=== PATIENT | female | born 1985 | race Caucasian/White ===

== ENCOUNTER → 2020-09-10 12:35 | Outpatient (BNVA) | payer OTHER, SELFPAY | PROVIDERS: PCP Internal Medicine; Visit Provider Nurse Practitioner | DX: Z13.89 Encounter for screening for other disorder (principal) | CPT/HCPCS: Q3014 ==

== ENCOUNTER 2020-10-28 13:49 | Outpatient (REF) | payer OTHER, SELFPAY ==
--- NOTE | ~2020-10-28 | US_ITS ---
EXAMINATION: US ABDOMEN LIMITED CLINICAL INFORMATION: AUGUSTINE. COMPARISON: Ultrasound abdomen 11/14/2019. Ultrasound renals 07/11/2017. TECHNIQUE: Real-time imaging of the right upper quadrant abdominal viscera. FINDINGS: PANCREAS: The pancreas is obscured by overlying gas. LIVER: The liver is normal in size. The liver contour is normal. Parenchymal echogenicity is increased. No focal hepatic lesion. There is no intrahepatic biliary duct dilatation seen. GALLBLADDER: Surgically absent. COMMON BILE DUCT: Normal in caliber measuring 0.3 cm in diameter. RIGHT KIDNEY: Normal. No hydronephrosis. No renal calculi or focal parenchymal lesions. The kidney measures 8.6 cm in maximum dimension. FREE FLUID: None. US/US abdomen limited IMPRESSION: Diffuse hepatic echogenicity suggestive of fatty liver. No focal lesion seen. The gallbladder is surgically absent. The CBD and the right kidney are unremarkable. The pancreas is obscured by gas.
== END 2020-10-28 13:50 | disposition home or self-care (01) ==
LOC: HO.US 13:49
PROVIDERS: PCP Internal Medicine; Visit Provider Nurse Practitioner
DX: K75.81 Nonalcoholic steatohepatitis (NASH) (principal)
CPT/HCPCS: 76705

== ENCOUNTER → 2020-12-08 15:21 | Outpatient (BNVA) | payer OTHER, SELFPAY | PROVIDERS: PCP Internal Medicine; Visit Provider Nurse Practitioner | DX: K21.9 Gastro-esophageal reflux disease without esophagitis (principal); K75.81 Nonalcoholic steatohepatitis (NASH); K58.2 Mixed irritable bowel syndrome; K59.04 Chronic idiopathic constipation; E66.01 Morbid (severe) obesity due to excess calories | CPT/HCPCS: Q3014 ==

== ENCOUNTER 2020-12-22 15:14 | Outpatient (REF) | payer OTHER, SELFPAY ==
[2020-12-22 18:16] LABS: Alanine Aminotransferase 23 U/L (0-31); Alkaline Phosphatase 63 U/L (39-117); Anion Gap 14 (12-20); Aspartate Amino Transferase 19 U/L (5-31); Bilirubin Total 0.9 mg/dL (0.0-1.0); Blood Urea Nitrogen 13 mg/dL (9-16); Calcium 9.7 mg/dL (8.4-10.2); Carbon Dioxide 25 mmol/L (22-29); Chloride 105 mmol/L (96-108); Estimated Glomerular Filt Rate > 60; Glucose Random 86 mg/dL (60-115); Sodium 139 mmol/L (135-145); Total Protein 6.7 g/dL (6.5-8.0)
[2020-12-24 12:52] LABS: Alpha Fetoprotein 3.5 ng/mL
== END 2020-12-22 15:15 | disposition home or self-care (01) ==
LOC: HO.HMGCLDS 15:14
PROVIDERS: PCP Internal Medicine; Visit Provider Nurse Practitioner
DX: K75.81 Nonalcoholic steatohepatitis (NASH) (principal)
CPT/HCPCS: 36415; 80053; 82105

== ENCOUNTER 2021-01-25 15:06 | Outpatient (REF) | payer OTHER, SELFPAY ==
[2021-01-25 17:04] LABS: Cholesterol 263 mg/dL; HDL Cholesterol 55 mg/dL; LDL Cholesterol Calculated 183 mg/dl; Triglycerides 128 mg/dL
[2021-01-25 17:28] LABS: TSH reflex Free T4 2.08 uIU/mL (0.32-4.0); Vitamin D 25-OH Total 28.3 ng/mL (>30)
[2021-01-25 17:40] LABS: Folate > 20.0 ng/mL (> or = 4.0); Vitamin B12 655 pg/mL (200-900)
== END 2021-01-25 15:07 | disposition home or self-care (01) ==
LOC: HO.HMGCLDS 15:06
PROVIDERS: PCP Internal Medicine; Visit Provider Internal Medicine
DX: Z00.00 Encounter for general adult medical examination without abnormal findings (principal); E66.01 Morbid (severe) obesity due to excess calories; K58.2 Mixed irritable bowel syndrome; R53.83 Other fatigue
CPT/HCPCS: 36415; 80061; 82306; 82607; 82746; 83735; 84443

== ENCOUNTER 2021-04-08 16:36 | Outpatient (REF) | payer OTHER, SELFPAY ==
[2021-04-08 17:26] LABS: Alanine Aminotransferase 27 U/L (0-31); Aspartate Amino Transferase 23 U/L (5-31); Cholesterol 244 mg/dL; HDL Cholesterol 45 mg/dL; LDL Cholesterol Calculated 168 mg/dl; Triglycerides 159 mg/dL
== END 2021-04-08 16:37 | disposition home or self-care (01) ==
LOC: HO.LAB 16:36
PROVIDERS: PCP Internal Medicine; Visit Provider Internal Medicine
DX: E66.01 Morbid (severe) obesity due to excess calories (principal); E78.5 Hyperlipidemia, unspecified
CPT/HCPCS: 36415; 80061; 84450; 84460

== ENCOUNTER 2021-05-11 11:23 | Outpatient (REF) | payer OTHER, SELFPAY ==
[2021-05-11 12:11] LABS: Influenza A PCR NEGATIVE (Negative); Influenza B PCR NEGATIVE (Negative); Resp Syncy Virus RNA Qual PCR POSITIVE (Negative); SARS COV2 PCR INHOUSE NEGATIVE (Negative)
== END 2021-05-11 11:24 | disposition home or self-care (01) ==
LOC: HO.LNP 11:23
PROVIDERS: Visit Provider Internal Medicine
DX: Z20.822 Contact with and (suspected) exposure to COVID-19 (principal); R43.9 Unspecified disturbances of smell and taste
CPT/HCPCS: 0241U

== ENCOUNTER 2021-05-26 15:14 | Outpatient (REF) | payer OTHER, SELFPAY | END 2021-05-26 15:15 | disposition home or self-care (01) | LOC: HO.LAB 15:14 | PROVIDERS: PCP Internal Medicine; Visit Provider Advanced Practice Midwife | DX: Z01.419 Encounter for gynecological examination (general) (routine) without abnormal findings (principal); E66.01 Morbid (severe) obesity due to excess calories; F17.210 Nicotine dependence, cigarettes, uncomplicated; Z68.43 Body mass index [BMI] 50.0-59.9, adult; Z79.899 Other long term (current) drug therapy | CPT/HCPCS: 88142; 99202 ==

== ENCOUNTER 2021-06-10 15:11 | Outpatient (REF) | payer OTHER, SELFPAY | END 2021-06-10 15:12 | disposition home or self-care (01) | LOC: HO.LAB 15:11 | PROVIDERS: Visit Provider Advanced Practice Midwife | DX: Z13.89 Encounter for screening for other disorder (principal) ==

== ENCOUNTER → 2021-07-16 16:24 | Outpatient (BNVA) | payer OTHER, SELFPAY | PROVIDERS: PCP Internal Medicine; Referring Provider Internal Medicine; Visit Provider Nurse Practitioner ==

== ENCOUNTER → 2021-08-16 16:06 | Outpatient (BNVA) | payer OTHER, SELFPAY | PROVIDERS: PCP Internal Medicine; Referring Provider Internal Medicine; Visit Provider Nurse Practitioner | DX: K21.9 Gastro-esophageal reflux disease without esophagitis (principal); K75.81 Nonalcoholic steatohepatitis (NASH); K59.04 Chronic idiopathic constipation; E66.01 Morbid (severe) obesity due to excess calories; Z68.43 Body mass index [BMI] 50.0-59.9, adult; Z79.899 Other long term (current) drug therapy | CPT/HCPCS: 99212 ==

== ENCOUNTER 2021-09-09 15:52 | Outpatient (REF) | payer OTHER, SELFPAY ==
--- NOTE | ~2021-09-09 | US_ITS ---
EXAMINATION: US ABDOMEN LIMITED CLINICAL INFORMATION: Nonalcoholic steatohepatitis. COMPARISON: Ultrasound abdomen limited 10/28/2020. Ultrasound abdomen complete 11/14/2019. MRI abdomen 05/03/2013. TECHNIQUE: Real-time imaging of the right upper quadrant abdominal viscera. Technically suboptimal study secondary to bowel gas and body habitus. FINDINGS: PANCREAS: Not visualized due to bowel gas. LIVER: Not well visualized. No focal liver lesion or biliary duct dilatation seen. GALLBLADDER: Surgically absent. COMMON BILE DUCT: Not well visualized. The visualized common bile duct is normal in caliber measuring 0.3 cm in diameter. RIGHT KIDNEY: Normal. No hydronephrosis. No renal calculi or focal parenchymal lesions. The kidney measures 8.1 cm in maximum dimension. FREE FLUID: None. US/US abdomen limited IMPRESSION: Very limited exam. The liver, pancreas and common bile duct are not well visualized.
[2021-09-09 17:32] LABS: Alanine Aminotransferase 39 U/L (0-31); Albumin Level 3.8 g/dL (3.5-5.0); Alkaline Phosphatase 58 U/L (39-117); Aspartate Amino Transferase 19 U/L (5-31); Bilirubin Direct 0.2 mg/dL (0.0-0.5); Bilirubin Total 0.6 mg/dL (0.0-1.0); Total Protein 6.5 g/dL (6.5-8.0)
[2021-09-13 11:21] LABS: Alpha Fetoprotein 3.2 ng/mL
== END 2021-09-09 15:53 | disposition home or self-care (01) ==
LOC: HO.US 15:52
PROVIDERS: Visit Provider Nurse Practitioner
DX: K75.81 Nonalcoholic steatohepatitis (NASH) (principal)
CPT/HCPCS: 36415; 76705; 80076; 82105

== ENCOUNTER 2022-03-29 14:33 | Outpatient (REF) | payer OTHER, SELFPAY ==
[2022-03-29 16:25] LABS: MANUAL DIFF FLAG NO
[2022-03-29 16:30] LABS: Basophils Percent Auto 0.5 % (0-2); Eosinophils Absolute Auto 0.2 X10*3/uL (0.0-0.4); Eosinophils Percent Auto 2.2 % (0-4); Hematocrit 44.8 % (37.0-47.0); Hemoglobin 14.5 g/dl (12.0-16.0); Imm Gran Abs Auto 0.05 X10*3/uL (0.00-0.03); Imm Gran Pct Auto 0.6 % (0.0-0.4); Lymphocytes Absolute Auto 3.3 X10*3/uL (1.2-4.9); Lymphocytes Percent Auto 38.4 % (20-40); Mean Corpuscular HGB Conc 32.4 g/dl (31.0-35.0); Mean Corpuscular Hemoglobin 30.8 pg (27.0-33.0); Mean Corpuscular Volume 95.1 fL (80.0-98.0); Mean Platelet Volume 8.9 fL (9.4-12.3); Monocytes Absolute Auto 0.6 X10*3/uL (0.1-1.2); Monocytes Percent Auto 6.4 % (2-11); Neutrophils Absolute Auto 4.5 x10*3/uL (2.0-8.3); Neutrophils Percent Auto 51.9 % (45-73); Platelet Count 317 X10*3/uL (160-400); Red Blood Count 4.71 X10*6/uL (4.20-5.50); Red Cell Distribution Width 13.1 % (11.0-16.0); White Blood Count 8.6 X10*3/uL (4.8-10.8)
[2022-03-29 16:49] LABS: Alanine Aminotransferase 29 U/L (0-31); Anion Gap 18 (12-20); Aspartate Amino Transferase 21 U/L (5-31); Blood Urea Nitrogen 11 mg/dL (9-16); Calcium 9.5 mg/dL (8.4-10.2); Carbon Dioxide 24 mmol/L (22-29); Chloride 104 mmol/L (96-108); Cholesterol 288 mg/dL; Estimated Glomerular Filt Rate > 60; Glucose Fasting 100 mg/dL (60-99); HDL Cholesterol 68 mg/dL; LDL Cholesterol Calculated 202 mg/dl; Potassium 4.7 mmol/L (3.3-5.1); Sodium 141 mmol/L (135-145); Triglycerides 94 mg/dL
[2022-03-29 17:12] LABS: TSH reflex Free T4 2.58 uIU/mL (0.32-4.0); Vitamin D 25-OH Total 39.6 ng/mL (>30)
[2022-03-29 17:32] LABS: Folate > 20.0 ng/mL (> or = 4.0); Vitamin B12 549 pg/mL (200-900)
== END 2022-03-29 14:34 | disposition home or self-care (01) ==
LOC: HO.HMGCLDS 14:33
PROVIDERS: PCP Internal Medicine; Visit Provider Internal Medicine
DX: Z00.01 Encounter for general adult medical examination with abnormal findings (principal); K75.81 Nonalcoholic steatohepatitis (NASH); K59.04 Chronic idiopathic constipation; K58.2 Mixed irritable bowel syndrome; K21.9 Gastro-esophageal reflux disease without esophagitis; E66.01 Morbid (severe) obesity due to excess calories; F31.9 Bipolar disorder, unspecified
CPT/HCPCS: 36415; 80048; 80061; 82306; 82607; 82746; 84443; 84450; 84460; 85025

== ENCOUNTER → 2022-05-18 16:07 | Outpatient (BNVA) | payer OTHER, SELFPAY | PROVIDERS: PCP Internal Medicine; Visit Provider Nurse Practitioner | DX: K75.81 Nonalcoholic steatohepatitis (NASH) (principal); K58.2 Mixed irritable bowel syndrome; E66.01 Morbid (severe) obesity due to excess calories; K21.9 Gastro-esophageal reflux disease without esophagitis; R53.83 Other fatigue; K59.04 Chronic idiopathic constipation | CPT/HCPCS: 99212 ==

== ENCOUNTER 2022-06-03 17:05 | Outpatient (REF) | payer OTHER, SELFPAY ==
[2022-06-03 18:24] LABS: Alanine Aminotransferase 20 U/L (0-31); Albumin Level 3.7 g/dL (3.5-5.0); Alkaline Phosphatase 64 U/L (39-117); Aspartate Amino Transferase 16 U/L (5-31); Bilirubin Direct 0.2 mg/dL (0.0-0.5); Bilirubin Total 0.3 mg/dL (0.0-1.0); Blood Urea Nitrogen 12 mg/dL (9-16); Estimated Glomerular Filt Rate 60; Free T4 (Free Thyroxine) 1.14 ng/dL (0.71-1.85); Total Protein 6.2 g/dL (6.5-8.0)
[2022-06-06 14:14] LABS: Alpha Fetoprotein 2.8 ng/mL
[2022-06-06 18:58] LABS: Thyroid Peroxidase Antibodies 4 IU/mL (<9)
== END 2022-06-03 17:06 | disposition home or self-care (01) ==
LOC: HO.LAB 17:05
PROVIDERS: PCP Internal Medicine; Visit Provider Nurse Practitioner
DX: E66.01 Morbid (severe) obesity due to excess calories (principal); K75.81 Nonalcoholic steatohepatitis (NASH); R53.83 Other fatigue
CPT/HCPCS: 36415; 80076; 82105; 82565; 84439; 84520; 86376

== ENCOUNTER 2022-06-07 15:44 | Outpatient (REF) | payer OTHER, SELFPAY ==
[2022-06-07] MEDS: iohexoL 350 MG/ML 100 ML INFUS..BTL IV (16:37)
== END 2022-06-07 15:45 | disposition home or self-care (01) ==
LOC: HO.CT 15:44
PROVIDERS: PCP Internal Medicine; Visit Provider Nurse Practitioner
DX: K75.81 Nonalcoholic steatohepatitis (NASH) (principal); E66.01 Morbid (severe) obesity due to excess calories
CPT/HCPCS: 74170; Q9967

== ENCOUNTER → 2022-09-30 16:12 | Outpatient (BNVA) | payer OTHER, SELFPAY | PROVIDERS: PCP Internal Medicine; Visit Provider Nurse Practitioner | DX: K58.2 Mixed irritable bowel syndrome (principal); K21.9 Gastro-esophageal reflux disease without esophagitis; K75.81 Nonalcoholic steatohepatitis (NASH) | CPT/HCPCS: 99212 ==

== ENCOUNTER 2023-03-30 13:51 | Outpatient (AMB) | payer OTHER, SELFPAY ==
[2023-03-30 13:55] VITALS: BP 126/70; PULSE 95; O2SAT 98; BMI 54.7
--- NOTE | 2023-03-30 13:55 | A.OFFPC_ITS ---
Vital Signs 03/30/23 13:55 Height 5 ft 2 in Weight 299 lb BMI 54.7 BP 126/70 Blood Pressure Location Rt brachial Position Sitting Pulse 95 Pulse Source Pulse Oximeter Pulse Oximetry (%) 98 Oxygen Delivery Method Room Air Intake Visit Reasons: annual PE Intake Note: pt is here today for her annual PE Allergies diphtheria,pertussis,tetanus, Haem. [DIP,PERT,TET, HAEM. CONJ VACC] Allergy (Severe, Verified 03/30/23 14:40) DIFFICULTY BREATHING strawberry Allergy (Unknown, Verified 03/30/23 14:40) Swelling, hives hydrocodone [Vicodin] Adverse Reaction (Unknown, Verified 03/30/23 14:40) vomiting Medication List - Last Reconciled 03/30/23 by Shanda Gonzalez MD ascorbic acid (vitamin C) mg PO bupropion HCl 300 mg PO DAILY unlpjfojcv-xhisgfsmdmvbq-hkav 50-300-40 mg 1 cap PO Q8H PRN calcium polycarbophil (Fiber Laxative (calcium polycarbophil)) 1,250 mg (2 x 625 mg) PO BID 30 days carboxymethylcellulose sodium 0.5% 0 drps ophthalmic (eye) carisoprodol 350 mg PO BID PRN cetirizine 10 mg PO DAILY PRN cholecalciferol (vitamin D3) 50 mcg PO DAILY cranberry 400 mg PO DAILY dicyclomine 20 mg PO QID PRN 30 days docusate sodium 100 mg PO BID famotidine 40 mg PO BEDTIME fluoxetine 0 mg PO hydroxyzine HCl 25 mg PO TID PRN lidocaine HCl 4% (Aspercreme (lidocaine HCl)) 1 appl topical BID PRN qrzvxe-xbffmbcz-xolbdlz 24,000-76,000 -120,000 unit (Creon) 1 cap PO QIDACHS 30 days lorazepam 1 mg PO DAILY PRN melatonin mg PO multivitamin 1 tab PO DAILY nabumetone 500 mg PO BID PRN nystatin 1 appl topical BID rizatriptan (Maxalt-CABIN AGENT) take 1 tab at onset of headache; if no relief may repeat 1 tab after at least 2 hrs; max = 3 tabs/24 hr PO tizanidine 4 mg PO BID PRN Tobacco use date assessed: 03/30/23 Dental Screening Dental Screen Date: 03/30/23 Did you have a dental visit in the last 12 months?: Yes Did you have a dental problem in the last 6 months where you did not have access to dental care?: No Was dental information given to patient?: Patient has dentist HPI annual PE HPI Details 37-year-old lady here today for her phys ical exam. She is morbidly obese, unable to do any meaningful exercise due to chronic low back pain. Declines referral for weight loss management. She has been diagnosed to have Scheuermann's kyphosis, was never corrected during childhood. Takes muscle relaxants and NSAIDs as needed for pain. She has been diagnosed with bipolar disorder, currently being followed by Psychiatry. She has chronic GERD, IBS, and diagnosed to have non alcoholic steatohepatitis currently takes famotidine. Complains of difficulty getting a good night's rest, frequently wakes up during the middle of the night, sometimes ends up coughing, has been told that she snores a lot and wakes up usually not feeling rested at all, and has excessive daytime sleepiness. Has migraine headaches, previously was on sumatriptan, which has not been working anymore. Like to see if she can get a prescription instead for rizatriptan which she has tried in the past to be effective. She is up-to-date with her cervical cancer screen, last done in 2020 with negative results [facility] Medical History (Updated 04/10/23 @ 02:10 by Shanda Gonzalez MD) Migraine Sleeping difficulty Seasonal allergic rhinitis Erythema intertrigo Dyslipidemia Chronic low back pain Cervical cancer screening Fatigue Morbid obesity due to excess calories Choledocholithiasis Bipolar disorder (manic depression) Scheuermann's kyphosis Surgical History History of ERCP Family History Father Acute myocardial infarction History of CVA (cerebrovascular accident) CVD (cardiovascular disease) Hyperlipidemia Substance abuse Mental health disorder Mother Substance abuse Mental health disorder Brother No problems noted. Brother Mental health disorder Sister Substance abuse Social History Housing: Apartment Alcohol intake: current Alcohol intake frequency: does not drink Patient Tobacco Use Status: Former Tobacco user Cigarette Packs Per Day: 1.5 Cigarettes Per Day: 30 Years Smoked: 15 e-Cigarette/Vaping Use: Never Used Second Hand Smoke Exposure: No service: No Current occupational status: disabled Current occupational exposures/hazards: No Cognitive needs: No Hearing needs: No Vision needs: Yes Female Reproductive History Menstrual Age of Menarche: 9 Questionnaire PHQ-9 Over the last 2 weeks, how often have you been bothered by any of the following problems? 1. Little interest or pleasure in doing things: several days 2. Feeling down, depressed, or hopeless: several days 3. Trouble falling or staying asleep, or sleeping too much: nearly every day 4. Feeling tired or having little energy: several days 5. Poor appetite or overeating: not at all 6. Feeling bad about yourself - or that you are a failure or have let yourself or your family down: several days 7. Trouble concentrating on things, such as reading the newspaper or watching television: not at all 8. Moving or speaking so slowly that other people could have noticed. Or the opposite - being so fidgety or restless that you have been moving around a lot more than usual: not at all 9. Thoughts that you would be better off or of hurting yourself in some way: not at all Total score: 7 Depression Screening Interpretation: Positive Depression Screening Follow-up: Existing condition, In treatment and Community Mental Health Worker F/U Depression Screening Done: Yes [id number] - PHQ-9 Billing: Yes Source: Developed by Drs. Boo Zavala, Lexus Saenz, Joseph Walters and colleagues, with an educational tramaine from [employer]. Thrive Questionnaire Date Thrive assessed: 03/30/23 What is your living situation today?: I have a steady place to live Within the past 12 months, did the food you bought not last and you didn't have the money to get more?: Never true Within the past 12 months, did you worry whether your food would run out before you got money to buy more?: Never true Do you have trouble paying for medicines?: No Do you have trouble getting transportation to medical appointments?: No Do you have trouble paying your heating and electricity bill?: No Do you have trouble taking care of your child, family member or friend?: No Do you have trouble with day-to-day activities such as bathing, preparing meals, shopping, managing finances, etc.?: No Are you currently unemployed and looking for a job?: No Are you interested in more education?: No Please select the resources that you would like help with: None Currently or been in a relationship where the following occur: no concerns reported AUDIT C Alcohol Use Questionnaire (AUDIT-C) 1. How often do you have a drink containing alcohol?: Never Total Score: 0 ELIE-7 AMB Questionnaire ELIE-7 Date ELIE - 7 assessed: 03/29/22 Source: Developed by Drs. Boo Zavala, Lexus Saenz, Joseph Walters and colleagues, with an educational tramaine from [employer]. Review of Systems Const All systems reviewed & are unremarkable except as noted in HPI and below Eyes Details: [facility] Reports no additional complaints ENT Reports no additional complaints Card Reports no additional complaints Resp Reports no additional complaints GI Reports no additional complaints Reports no additional complaints Musc Reports no additional complaints, Reports back pain and Reports stiffness Skin/Breast Denies breast pain and Denies breast mass Neuro Reports no additional complaints and Denies Abnormal speech present Psych Reports no additional complaints Endo Reports no additional complaints Kirk/Lymph Reports no additional complaints Aller/Immun Reports no additional complaints Physical exam (Primary Care) Vital Signs: Last Vital Signs Pulse 95 03/30/23 13:55 BP 126/70 03/30/23 13:55 Pulse Ox 98 03/30/23 13:55 Oxygen Delivery Method Room Air 03/30/23 13:55 BMI result Body Mass Index 54.7 BMI Assessment/Plan discussion: High BMI High, discussed plan: lifestyle, weight reduction, dietary and physical activity Tobacco/Smoking Status: Tobacco use Status Tobacco use date assessed 03/30/23 03/30/23 13:57 Patient Tobacco Use Status Former Tobacco user 03/30/23 13:57 e-Cigarette/Vaping Use Never Used 03/30/23 13:57 Are you ready to quit: No Depression Screening Interpretation: Positive Depression Screening Follow-up: Existing condition, In treatment and Community Mental Health Worker F/U Thrive Assessment: Date of Thrive Assessment Date Thrive assessed 03/29/22 03/30/23 13:57 Currently or been in a relationship where the following occur: no concerns reported Const General: no acute distress Nutritional Appearance: obese morbidly obese Orientation/consciousness: patient oriented x3 HENTN Ears: hearing grossly normal bilaterally and external ears normal General nose exam: Normal external nose present and No nasal discharge present Face and sinus: Yes face symmetric Mouth: moist mucous membranes Eyes General: appearance normal, both eyes and all related structures Neck Neck: Yes no lymphadenopathy and Yes supple Thyroid: Thyroid normal Chest Breast/axilla palpation: normal palpation of the breasts Resp Auscultation: clear to auscultation bilaterally Cardio Rate: regular rate Rhythm: regular rhythm Heart sounds: S1 normal heart sound present and S2 normal heart sound present GI Inspection: Yes Abdominal panniculus present and Yes obesity Palpation (GI): Soft to palpation, nontender, no guarding, no hernias and no masses Auscultation: normal bowel sounds General: Yes no CVA tenderness Back/Spine/Pelvis Other: Slightly kyphotic Back: no CVA tenderness and back tenderness Thoracic/Lumbar Spine: straight leg raise negative bilaterally, bend over test abnormal and paraspinal muscle tenderness bilaterally in the mid lumbar and in the lower lumbar Skin Other: Erythematous moist patch on inframammary fold bilateral Neuro General: patient oriented x3, gait normal, moves all extremities and no focal motor deficits Speech: No Abnormal speech present Extrem General: Yes full ROM, Yes no joint enlargement, Yes no pedal edema and Yes normal gait Psych Appearance: grossly normal Mental Status: mental status grossly normal Speech and movement: Normal speech and movement present Affect: normal affect Attitude: cooperative Thought process: Normal thought process present Assessment and Plan Assessment & Plan (1) Annual visit for general adult medical examination with abnormal findings: Code(s): Z00.01 - Encounter for general adult medical examination with abnormal findings Plan: Will check appropriate labs. Recommended dental visit every 6 months and regular eye exams, at least every 2 years. Take adequate calcium in diet and vitamin-D 3 at 2000 IU per cap once a day, in addition to weight-bearing exercises to help maintain good muscle tone and weight control. Instructed to do self-breast exam, and recommended to get yearly mammogram, starting at age 40. Up-to-date with her screening for cervical cancer. Reminded to get her flu shot (2) Sleeping difficulty: Code(s): G47.9 - Sleep disorder, unspecified Plan: Sleep medicine consult ordered (3) Snoring: Code(s): R06.83 - Snoring Plan: Sleep medicine consult ordered (4) Scheuermann's kyphosis: Code(s): 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, site unspecified Plan: Neuro Spine consult ordered (5) Dyslipidemia: Code(s): E78.5 - Hyperlipidemia, unspecified Plan: Fasting lipid panel ordered , stressed importance of adherence to low- cholesterol diet and regular exercise, at least 30 minutes 3 to 4 times a week. Advised patient to make healthy food choices, eat more fruits, vegetables, whole grains, wild caught fish and low-fat dairy. Limit amount of meat and fried or fatty food products, as well as processed foods and fast foods. (6) Morbid obesity due to excess calories: Code(s): E66.01 - Morbid (severe) obesity due to excess calories Plan: Patient has declined referral for weight loss management, stressed importance of following healthy diet and getting regular exercise. (7) AUGUSTINE (nonalcoholic steatohepatitis): Code(s): K75.81 - Nonalcoholic steatohepatitis (AUGUSTINE) (8) Bipolar disorder (manic depression): Code(s): F31.9 - Bipolar disorder, unspecified Plan: Currently being followed by Psychiatry (9) Fatigue: Code(s): R53.83 - Other fatigue Qualifiers: Fatigue type: chronic, unspecified Qualified Code(s): R53.82 - Chronic fatigue, unspecified Plan: Ordered vitamin-D and TSH level as was free T4, referred to sleep medicine for evaluation for possible obstructive sleep apnea (10) Migraine: Code(s): G43.909 - Migraine, unspecified, not intractable, without status migrainosus Qualifiers: Migraine type: migraine (< 15 days per month) without aura Status migrainosus presence: without status migrainosus Intractability: not intractable Qualified Code(s): G43.009 - Migraine without aura, not intrac table, without status migrainosus Plan: Prescription sent for rizatriptan to take as directed, discontinue sumatriptan Orders: Orders Lipid Panel 03/30/23 G43.909 - Migraine, unspecified, not intractable, without status migrainosus, E78.5 - Hyperlipidemia, unspecified, K75.81 - Nonalcoholic steatohepatitis (AUGUSTINE), E66.01 - Morbid (severe) obesity due to excess calories, F31.9 - Bipolar disorder, unspecified, 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, site unspecified, R53.83 - Other fatigue Vitamin D 25-OH Total 03/30/23 G43.909 - Migraine, unspecified, not intractable, without status migrainosus, E78.5 - Hyperlipidemia, unspecified, K75.81 - Nonalcoholic steatohepatitis (AUGUSTINE), E66.01 - Morbid (severe) obesity due to excess calories, F31.9 - Bipolar disorder, unspecified, 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, site unspecified, R53.83 - Other fatigue TSH reflex Free T4 03/30/23 G43.909 - Migraine, unspecified, not intractable, without status migrainosus, E78.5 - Hyperlipidemia, unspecified, K75.81 - Nonalcoholic steatohepatitis (AUGUSTINE), E66.01 - Morbid (severe) obesity due to excess calories, F31.9 - Bipolar disorder, unspecified, 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, site unspecified, R53.83 - Other fatigue Alanine Aminotransferase 03/30/23 G43.909 - Migraine, unspecified, not intractable, without status migrainosus, E78.5 - Hyperlipidemia, unspecified, K75.81 - Nonalcoholic steatohepatitis (AUGUSTINE), E66.01 - Morbid (severe) obesity due to excess calories, F31.9 - Bipolar disorder, unspecified, 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, site unspecified, R53.83 - Other fatigue Aspartate Amino Transferase 03/30/23 G43.909 - Migraine, unspecified, not intractable, without status migrainosus, E78.5 - Hyperlipidemia, unspecified, K75.81 - Nonalcoholic steatohepatitis (AUGUSTINE), E66.01 - Morbid (severe) obesity due to excess calories, F31.9 - Bipolar disorder, unspecified, 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, site unspecified, R53.83 - Other fatigue Basic Metabolic Panel Fasting 03/30/23 G43.909 - Migraine, unspecified, not intractable, without status migrainosus, E78.5 - Hyperlipidemia, unspecified, K75.81 - Nonalcoholic steatohepatitis (AUGUSTINE), E66.01 - Morbid (severe) obesity due to excess calories, F31.9 - Bipolar disorder, unspecified, 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, site unspecified, R53.83 - Other fatigue Referrals Sleep Medicine Referral R06.83 - Snoring, G47.9 - Sleep disorder, unspecified, E66.01 - Morbid (severe) obesity due to excess calories Neuro Spine Referral 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, site unspecified Medications: New rizatriptan (Maxalt-CABIN AGENT) take 1 tab at onset of headache; if no relief may repeat 1 tab after at least 2 hrs; max = 3 tabs/24 hr PO 10 tabs 2RF G43.909 - Migraine, unspecified, not intractable, without status migrainosus Discontinued sumatriptan succinate Discontinued Reason: Patient Refused 50 mg PO .qd PRN 10 tabs 0RF for headache Coding Level of Care Code Est Pt Prev Care [id number]([id number]) Diagnoses Annual visit for general adult medical examination with abnormal findings Z00.01 Sleeping difficulty G47.9 Snoring R06.83 Scheuermann's kyphosis M42.00 Dyslipidemia E78.5 Morbid obesity due to excess calories E66.01 AUGUSTINE (nonalcoholic steatohepatitis) K75.81 Bipolar disorder (manic depression) F31.9 Chronic fatigue R53.82 Fatigue type: chronic, unspecified Migraine without aura and without status migrainosus, not intractable G43.009 Migraine type: migraine (< 15 days per month) without aura Status migrainosus presence: without status migrainosus Intractability: not intractable
== END 2023-03-30 14:46 | disposition home or self-care (01) ==
PROVIDERS: Visit Provider Internal Medicine
DX: Z00.00 Encounter for general adult medical examination without abnormal findings (principal); E66.01 Morbid (severe) obesity due to excess calories; F31.9 Bipolar disorder, unspecified; Z68.43 Body mass index [BMI] 50.0-59.9, adult; G47.9 Sleep disorder, unspecified; R06.83 Snoring; M42.00 Juvenile osteochondrosis of spine, site unspecified; E78.5 Hyperlipidemia, unspecified; K75.81 Nonalcoholic steatohepatitis (NASH); R53.82 Chronic fatigue, unspecified; G43.009 Migraine without aura, not intractable, without status migrainosus
CPT/HCPCS: 99395

== ENCOUNTER 2023-04-28 13:48 | Outpatient (AMB) | payer OTHER, SELFPAY ==
--- NOTE | 2023-04-28 14:06 | A.OFFVIS_ITS ---
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 She reports she had a polysomnogram in 2010 that was inconclusive. She snores at night. She states she doesn't get much sleep but isn't sure if it's because of repositioning from her back issues or simply because she can't breath well. 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 [DIP,PERT,TET, HAEM. CONJ VACC] Allergy (Severe, Verified 04/28/23 14:06) DIFFICULTY BREATHING strawberry Allergy (Unknown, Verified 04/28/23 14:06) Swelling, hives hydrocodone [Vicodin] Adverse Reaction (Unknown, Verified 04/28/23 14:06) vomiting HPI HPI Comments History of Present Illness Details 38 y/o female patient presents for new i n-person visit for sleep consultation. Pt reports that she had a PSG sleep study done in 2010, but it was inconclusive. She could not sleep due to back pain. She gained about 60 lb since the sleep study. She reports snoring, also has sinus problem and her nose also very stuffy. She reports interrupted sleep, daytime sleepiness with brain fog. Sleep questionnaire: Have you ever been diagnosed with a sleep disorder? No. Have you ever had a sleep study in the past? Yes. Have you ever been treated for a sleep disorder? No. Do you take medications for a sleep disorder? PRN melatonin. Do you snore? Yes. Do you wake up gasping at night? No. Do you have episodes of apneas? No. If yes, are they witnessed? No. Do you have episodes of nocturnal chest pain or dyspnea? No. Do you have difficulty initiating sleep? Yes. Do you have difficulty maintaining sleep? Yes. Do you wake up tired? Yes. Do you have headaches upon awakening? Yes. Do you wake up with dry mouth or throat? No. Do you have GERD? Yes. Do you have nocturia? No. Do you have nocturnal leg cramps? Yes. Do you have symptoms of restless legs? No. Do you act out your dreams? No. Sleep hygiene questionnaire: What is your usual sleep routine? Usual bedtime is at 10 pm; Usual wake up time is at 6-8 am. Do you take naps? Try not to. Is your sleep environment cool, dark, and quiet? Yes. Do you exercise? Walking. Do you take caffeine or other stimulants? No. Do you use electronics in bed? No. What is your work schedule? N/A. Hypersomnolence questionnaire: Do you have daytime tiredness or fatigue? Yes. Do you easily fall asleep when inactive? Yes, sometimes. Have you ever had episodes of sudden weakness? No. Have you ever had episodes of sudden weakness associated with strong emotions? No. PFSH Medical History (Updated 04/28/23 @ 14:41 by Malka Rebolledo CNP) Migraine Sleeping difficulty Seasonal allergic rhinitis Erythema intertrigo Dyslipidemia Chronic low back pain Cervical cancer screening Fatigue Morbid obesity due to excess calories Choledocholithiasis Bipolar disorder (manic depression) Scheuermann's kyphosis Surgical History History of ERCP Family History Father Acute myocardial infarction History of CVA (cerebrovascular accident) CVD (cardiovascular disease) Hyperlipidemia Substance abuse Mental health disorder Mother Substance abuse Mental health disorder Brother No problems noted. Brother Mental health disorder Sister Substance abuse Social History Housing: Apartment Alcohol intake: current Alcohol intake frequency: does not drink Patient Tobacco Use Status: Former Tobacco user Cigarette Packs Per Day: 1.5 Cigarettes Per Day: 30 Years Smoked: 15 e-Cigarette/Vaping Use: Never Used Second Hand Smoke Exposure: No service: No Current occupational status: disabled Current occupational exposures/hazards: No Cognitive needs: No Hearing needs: No Vision needs: Yes Female Reproductive History Menstrual Age of Menarche: 9 Review of Systems Const All systems reviewed & are unremarkable except as noted in HPI and below ENT Reports Normal hearing present Neuro Reports Normal hearing present Physical Exam Vital Signs: Last Vital Signs Pulse 89 04/28/23 14:07 Resp 17 04/28/23 14:07 BP 110/66 04/28/23 14:07 Pulse Ox 99 04/28/23 14:07 Oxygen Delivery Method Room Air 04/28/23 14:07 BMI result Body Mass Index 56.6 Const General: cooperative and tired appearing Nutritional Appearance: obese Orientation/consciousness: patient oriented x3 Neck Neck: Yes full ROM and Yes supple Neuro General: patient oriented x3 and gait normal Cranial nerves: Yes Bilaterally intact EOM present, Yes Normal facial strength present, Yes Midline tongue present, Yes Symmetric palate elevation present, Yes Normal hearing present, Yes Ability to bilaterally rotate head present and Yes Ability to bilaterally elevate shoulders present Cognition (Neuro): normal cognition Gait exam (Neuro): Normal gait present Motor exam (neuro): 5/5 motor strength present throughout, Pronator motor function not present and no tremor noted Psych Appearance: grossly normal Mental Status: mental status grossly normal Speech and movement: Normal speech and movement present Affect: normal affect Attitude: cooperative Assessment & Plan Assessment & Plan (1) Daytime sleepiness: Code(s): R40.0 - Somnolence (2) Snoring: Code(s): R06.83 - Snoring (3) Sleeping difficulty: Code(s): G47.9 - Sleep disorder, unspecified Plan Pt is advised to undergo home sleep study to assess for sleep apnea. Pt prefers to have home sleep study. Will f/u with pt after study to discuss results and appropriate treatment options. Pt to call with any worsening concerns or questions. Orders: Orders RT home sleep study Today E66.01 - Morbid (severe) obesity due to excess calories, G47.9 - Sleep disorder, unspecified, R06.83 - Snoring, R40.0 - Somnolence, R53.83 - Other fatigue Coding Level of Care Code New Pt Level 3 (19518) Diagnoses Daytime sleepiness R40.0 Snoring R06.83 Sleeping difficulty G47.9
[2023-04-28 14:07] VITALS: BP 110/66; PULSE 89; RESP 17; O2SAT 99; BMI 56.6
== END 2023-04-28 14:43 | disposition home or self-care (01) ==
PROVIDERS: PCP Internal Medicine; Visit Provider Nurse Practitioner Family
DX: R40.0 Somnolence (principal); R06.83 Snoring; G47.9 Sleep disorder, unspecified
CPT/HCPCS: 99203

== ENCOUNTER → 2023-04-28 13:48 | Outpatient (BNVA) | payer OTHER, SELFPAY | PROVIDERS: PCP Internal Medicine; Visit Provider Nurse Practitioner Family | DX: R40.0 Somnolence (principal); R06.83 Snoring; G47.9 Sleep disorder, unspecified | CPT/HCPCS: 99202 ==

== ENCOUNTER 2023-06-14 13:15 | Outpatient (AMB) | payer OTHER, SELFPAY ==
--- NOTE | 2023-06-14 12:53 | HO.SPINEOV ---
Intake Intake Visit Reasons: Osteochondrosis of spine Allergies diphtheria,pertussis,tetanus, Haem. [DIP,PERT,TET, HAEM. CONJ VACC] Allergy (Severe, Verified 04/28/23 14:06) DIFFICULTY BREATHING strawberry Allergy (Unknown, Verified 04/28/23 14:06) Swelling, hives hydrocodone [Vicodin] Adverse Reaction (Unknown, Verified 04/28/23 14:06) vomiting Assessment & Plan Assessment & Plan (1) Chronic low back pain: Code(s): M54.5 - Low back pain; G89.29 - Other chronic pain Plan Dear Dr. Gonzalez, Thank you for referring Fariba to our office today. She is a pleasant 38-year-old female comes in today for chronic longstanding mid-low back pain with no known radiation of symptoms. She has no numbness/tingling/burning sensations in her lower extremities. When describing her low-back pain she runs her hands in axial fashion across her mid/low back. She has a pertinent medical history of Scheuermann kyphosis which was diagnosed in childhood never corrected. She is unable to ambulate for significant periods of time due to her mid to low back pain, and finds herself needing to sit down and rest and in between walking distances. She reports she has attempted to utilize many myvd-zek-ejgotgm remedies including Tylenol, ibuprofen, ice, heat, lhtf-gwm-ahvvhrs pain patches, and pain relief creams without significant symptom relief. She has been to physical therapy multiple times in the past without significant relief. The last time she went to physical therapy was 2 years ago. She also reports another issue, which he states is pain in the back of her neck with shooting pains into her bilateral hands, right worse than left. She states that she also has some tingling/weakness in her hands, predominantly affecting her first 3 digits on the right side. She states that her posterior neck pain with associated shooting pains into her hands and tingling/weakness began roughly 1 year ago and has not resolved/improved since onset. She has also tried all available ipil-fed-ryrzswz remedies for this issue, without relief, and has attempted an home exercise/stretching again without significant relief of pain. She is concerned because she states that her tingling/weakness in her hand seems to be getting worse per her report. She states that her numbness/tingling in her 1st 3 digits is worse during the day when she is active/trying to use her hands, and does not cause her any issues at night. PMH: Scheuermann kyphosis, obesity, hyperlipidemia, seasonal allergies, GERD, irritable bowel syndrome, AUGUSTINE, bipolar disorder (manic type), Social hx: Patient does not smoke, reports no substance use. Medications: Vitamin-C, bupropion, calcium laxative, carboxymethylcellulose eyedrops, carisoprodol, cetirizine, vitamin D3, cranberry, dicyclomine, docusate, famotidine, fluoxetine, hydroxyzine, lidocaine patches, Creon, lorazepam, melatonin, multivitamin, nabumetone, Maxalt, probiotic, tizanidine. Allergies: DTaP vaccine, strawberries, hydrocodone. Physical exam: The patient has 5/5 strength in her upper and lower extremities. Her sensation is grossly intact. Her reflexes are 2+ intact. She is able to ambulate well and rises from seated position without difficulty. (-) Rogel's, (-) clonus, (-) Tinel's at wrist bilaterally, (-) Phalen's. Imaging review: MRI of the thoracic spine completed at [facility] [place] on May 18 of this year shows no acute osseous abnormalities. No significant central cord impingement. No significant foraminal stenosis. Evident kyphosis with thoracic vertebral wedging worse within the levels of T9-T12. Impression: Fariba is a pleasant 38-year-old female comes in today with a chief complaint of chronic long standing back pain. She likely continues to have her chronic low back pain due to her untreated Scheuermann kyphosis, accompanied by her other comorbidities. It is unlikely that she has an acute process in the works at this time, as she reports no recent inciting incident or acute worsening symptoms. We discussed how fixation of her kyphosis would likely involve a multi-level fusion surgery, which she did not seem interested in pursuing at this time. She also declined interest in low back injections via pain management due to her reported desire to avoid large needles. I would need to discuss the case with Dr. Tipton and see if he believes her to be a canidate for kyphosis correction if she were to decide that she would like to pursue that option in the future. For the time being I recommend following up with pain management and her primary care provider for further management of her low back pain. Regarding her neck pain with radiculopathy, I believe that Fariba may have some kind of cervical pathology in the works. She has classic signs/symptoms of a C6/7 nerve root impingement, given the dermatomal distribution which she describes her symptoms. It is concerning that she states this seems to be worsening, now affecting her ability to complete ADLs such as walking her dog, doing the dishes, and taking care of her laundry. She is also unable to engage in coping skills such as carving wood, and completing art projects, as her hands become numb/weak with use. For this reason I will be ordering her an MRI of the cervical spine to evaluate for any central canal or nerve root impingement in the cervical spine. Thank you for allowing us to care for your patient. The total time spent with this visit with this patient was 60 minutes reviewing history, physical exam, MRI imaging review, and implementation of treatment plan or further diagnostic testing Phil Tipton MD,PhD [facility] Orders: Orders MR cervical spine wo con 06/14/23 M54.12 - Radiculopathy, cervical region Coding Level of Care Code New Pt Level 5 (16993) Diagnoses Chronic low back pain M54.5; G89.29
== END 2023-06-14 13:38 | disposition home or self-care (01) ==
PROVIDERS: PCP Internal Medicine; Referring Provider Internal Medicine; Visit Provider Physician Assistant
DX: M54.50 Low back pain, unspecified (principal); G89.29 Other chronic pain
CPT/HCPCS: 99205

== ENCOUNTER → 2023-06-14 13:15 | Outpatient (BNVA) | payer OTHER, SELFPAY | PROVIDERS: PCP Internal Medicine; Visit Provider Physician Assistant | DX: M54.59 Other low back pain (principal); G89.29 Other chronic pain | CPT/HCPCS: 99202 ==

== ENCOUNTER → 2023-10-03 16:02 | Outpatient (REF) | payer OTHER, SELFPAY | LOC: HO.SL 16:02 | PROVIDERS: Visit Provider Nurse Practitioner Family | DX: G47.33 Obstructive sleep apnea (adult) (pediatric) (principal); R53.83 Other fatigue; E66.01 Morbid (severe) obesity due to excess calories; R06.83 Snoring; R40.0 Somnolence | CPT/HCPCS: 95806 ==

== ENCOUNTER → 2023-10-03 16:08 | Outpatient (BNV) | payer OTHER, SELFPAY | PROVIDERS: Visit Provider Psychiatry & Neurology Neurology | DX: G47.33 Obstructive sleep apnea (adult) (pediatric) (principal) | CPT/HCPCS: 95806 ==

== ENCOUNTER 2023-10-12 14:23 | Outpatient (AMB) | payer OTHER, SELFPAY ==
[2023-10-12 14:25] VITALS: BP 98/51; PULSE 77; O2SAT 98; BMI 56.9
--- NOTE | 2023-10-12 14:25 | A.OFFVIS_ITS ---
Vital Signs 10/12/23 14:25 Height 5 ft 2 in Weight 311 lb 4.683 oz BMI 56.9 BP 98/51 L Blood Pressure Location Lt brachial Position Sitting Pulse 77 Pulse Oximetry (%) 98 Intake Visit Reasons: Follow up IBS Intake Note: Pt presents to in office visit today in follow up of IBS. CC: She states she is feeling tired and gassy. She states she feels about the same. 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 [DIP,PERT,TET, HAEM. CONJ VACC] Allergy (Severe, Verified 10/16/23 15:14) DIFFICULTY BREATHING strawberry Allergy (Unknown, Verified 10/16/23 15:14) Swelling, hives hydrocodone [Vicodin] Adverse Reaction (Unknown, Verified 10/16/23 15:14) vomiting Medication List - Last Reconciled 10/12/23 by ERNA Casiano ascorbic acid (vitamin C) mg PO bupropion HCl XL 300 mg PO DAILY calcium polycarbophil (Fiber Laxative (calcium polycarbophil)) 1,250 mg (2 x 625 mg) PO BID 30 days carboxymethylcellulose sodium 0.5% 0 drps ophthalmic (eye) carisoprodol 350 mg PO BID PRN cetirizine 10 mg PO DAILY PRN cholecalciferol (vitamin D3) 50 mcg PO DAILY cranberry 400 mg PO DAILY cranberry extract 200 mg PO DAILY dicyclomine 20 mg PO QID PRN 30 days docusate sodium 100 mg PO BID famotidine 40 mg PO BEDTIME fluoxetine 0 mg PO hydroxyzine HCl 25 mg PO TID PRN lactobacillus combination no.9 (Adult 50 Plus Probiotic) PO DAILY lidocaine HCl 4% (Aspercreme (lidocaine HCl)) 1 appl topical BID PRN vulgkg-rcsjoksb-wdvsfci 24,000-76,000 -120,000 unit (Creon) 1 cap PO QID PRN lorazepam 1 mg PO DAILY PRN magnesium glycinate 100 mg PO DAILY melatonin mg PO multivitamin 1 tab PO DAILY nabumetone 500 mg PO BID PRN nystatin 1 appl topical BID rizatriptan (Maxalt) take 1 tab at onset of headache; if no relief may repeat 1 tab after at least 2 hrs; max = 3 tabs/24 hr PO Saccharomyces boulardii (Digest Probiotic (S.boulardii)) 250 mg PO BID tizanidine 4 mg PO BID PRN HPI HPI Follow up IBS: Details: Assessment & Plan (1) Irritable bowel syndrome with both constipation and diarrhea: Code(s): K58.2 - Mixed irritable bowel syndrome Plan: She has been having a lot of stress lately because her mother has been ill. She had a bad course with renal stones, stents and infections. She is doing okay, but has had some problems with intermittent GERD and pain behind the belly button. This has since resolved. She continues on her Creon, famotidine, Colace and dicyclomine. We review all of the labs and everything appears to be stable or even improving in terms of her fatty liver disease. I again emphasized the importance of weight control, sugar control and avoiding alcohol. She has been gaining weight, but may be water given her improved LFT's - she notes leg and hand swelling and brittle nails. TSH checked in past was okay. We discussed salt intake and she says she is careful about this. She wants to know why this is happening I tell her there is a variety of things that can cause this and she really should check with her primary care provider and make sure that it is nothing cardiac. Other hormonal imbalances decides thyroid can cause this as well. ROV 2 mos and at that time repeat AUGUSTINE labs and US. (2) GERD (gastroesophageal reflux disease): Code(s): K21.9 - Gastro-esophageal reflux disease without esophagitis (3) AUGUSTINE (nonalcoholic steatohepatitis): Comment: His diagnosis appears prior to me seeing the patient, and she is negative for hepatitis a B and C, or alpha fetoprotein or recent ferritin. LABS: 10/2019 Chem profile is normal, G GGT is elevated at 55, ferritin is normal at 87, alpha fetoprotein tumor marker is 3.1, autoimmune workup is negative, fibrosis sure score is F 0 CURRENT LABS 09/09/21 Total Bilirubin 0.6 Direct Bilirubin 0.2 AST 21 ALT 29 Alkaline Phosphatase 58 Alpha Fetoprotein 3.2 ULTRASOUND OF THE ABDOMEN 09/10/21 FINDINGS: PANCREAS: Not visualized due to bowel gas. LIVER: Not well visualized. No focal liver lesion or biliary duct dilatation seen. GALLBLADDER: Surgically absent. COMMON BILE DUCT: Not well visualized. The visualized common bile duct is normal in caliber measuring 0.3 cm in diameter. RIGHT KIDNEY: Normal. No hydronephrosis. No renal calculi or focal parenchymal lesions. The kidney measures 8.1 cm in maximum dimension. FREE FLUID: None. US/US abdomen limited IMPRESSION: Very limited exam. The liver, pancreas and common bile duct are not well visualized. Code(s): K75.81 - Nonalcoholic steatohepatitis (AUGUSTINE) Medications: Refilled lidocaine HCl 4% (Aspercreme (lidocaine HCl)) 1 appl topical BID PRN 76.5 grams 1RF pain docusate sodium 100 mg PO BID 56 caps 6RF K59.04 - Chronic idiopathic constipation dicyclomine 20 mg PO QID 30 days PRN 120 tabs 6RF constipation K58.2 - Mixed irritable bowel syndrome TODAYS VISIT She continues on her Creon, famotidine, Colace and dicyclomine. It has been over a year since I have seen her, apparently she was late for a few last of the day appointments and had to be rescheduled. She finds the creon makes her more gassy if she takes it too often (? promoting cic), and she uses the bentyl prn as well. She continues on her famotidine and we discuss moving the dose back in the day because if she takes is laying down (qhs) she will have bad HB. She has been gaining weight, she also has back problems and is having tremors of her hands ROV 6 mos. [facility] Medical History Migraine Sleeping difficulty Seasonal allergic rhinitis Erythema intertrigo Dyslipidemia Chronic low back pain Cervical cancer screening Fatigue Morbid obesity due to excess calories Choledocholithiasis Bipolar disorder (manic depression) Scheuermann's kyphosis Surgical History History of ERCP Family History Father Acute myocardial infarction History of CVA (cerebrovascular accident) CVD (cardiovascular disease) Hyperlipidemia Substance abuse Mental health disorder Mother Substance abuse Mental health disorder Brother No problems noted. Brother Mental health disorder Sister Substance abuse Social History Housing: Apartment Alcohol intake: current Alcohol intake frequency: does not drink Patient Tobacco Use Status: Former Tobacco user Cigarette Packs Per Day: 1.5 Cigarettes Per Day: 30 Years Smoked: 15 e-Cigarette/Vaping Use: Never Used Second Hand Smoke Exposure: No service: No Current occupational status: disabled Current occupational exposures/hazards: No Cognitive needs: No Hearing needs: No Vision needs: Yes Female Reproductive History Menstrual Age of Menarche: 9 Review of Systems Const Denies fatigue, Denies fever(s), Denies night sweats, Denies poor appetite and Denies weight loss ENT Reports Normal hearing present, Denies dental pain, Denies dysphagia, Denies hearing loss, Denies mouth pain, Denies odynophagia, Denies throat swelling, Denies tongue swelling and Reports other (Dentition adequate) Card Reports no additional complaints Resp Reports no additional complaints GI Details: Denies abdominal pain, Denies melena, Reports bloating, Denies hematochezia, Reports constipation, Denies GI cramping, Denies dysphagia, Denies excessive flatus, Denies early satiety, Reports heartburn, Denies diarrhea, Denies nausea, Denies odynophagia, Denies vomiting and Denies hematemesis Skin/Breast Denies pruritus, Denies lesions, Denies rash and Denies jaundice Neuro Reports Normal hearing present and Denies Abnormal speech present Endo Denies fatigue Aller/Immun Denies throat swelling and Denies tongue swelling Physical Exam Vital Signs: Last Vital Signs Pulse 77 10/12/23 14:25 BP 98/51 L 10/12/23 14:25 Pulse Ox 98 10/12/23 14:25 BMI result Body Mass Index 56.9 Const General: cooperative, no acute distress, well developed and well groomed Nutritional Appearance: well nourished and obese morbidly obese Orientation/consciousness: oriented to person, oriented to place and oriented to time Limitations: No language barrier HEENT Head: Yes normocephalic and Yes atraumatic Eyes General: appearance normal, both eyes and all related structures Pupils: Equal, round and reactive pupils present Neck Neck: Yes normal visual inspection and Yes no lymphadenopathy Thyroid: Thyroid normal Resp Effort & Inspection: normal respiratory effort and able to speak in complete sentences Auscultation: clear to auscultation bilaterally Cardio Rate: regular rate Rhythm: regular rhythm Heart sounds: Normal, physiologic split S2 sound present Peripheral pulses: radial pulses present and posterior tibial pulses present GI Inspection: No distended, Yes Abdominal panniculus present and Yes obesity Palpation (GI): Soft to palpation, nontender, no guarding, not rigid and No hepatosplenomegaly present Percussion: Yes normal to percussion Auscultation: normal bowel sounds Rectal Exam - Female: deferred Skin General skin exam: no rashes or lesions noted, turgor normal, skin not dry, no jaundice, No spider nevi and no striae Rashes: no rashes Nails: normal Neuro General: oriented to person, oriented to place and oriented to time Cranial nerves: Yes Equal, round and reactive pupils present and Yes Normal hearing present Speech: No Abnormal speech present Extrem General: Yes normal to inspection, No clubbing, No cyanosis and No edema Psych Appearance: grossly normal and well kempt Mental Status: mental status grossly normal Speech and movement: Normal speech and movement present Affect: normal affect Attitude: cooperative Thought process: Normal thought process present and not confabulating Thought content: Normal thought content present Insight: Limited insight present (Psych) Judgement: Limited judgement present (Psych) Assessment & Plan Assessment & Plan (1) Irritable bowel syndrome with both constipation and diarrhea: Code(s): K58.2 - Mixed irritable bowel syndrome Category: Medical (2) GERD (gastroesophageal reflux disease): Code(s): K21.9 - Gastro-esophageal reflux disease without esophagitis Category: Medical (3) AUGUSTINE (nonalcoholic steatohepatitis): Code(s): K75.81 - Nonalcoholic steatohepatitis (AUGUSTINE) Category: Medical Plan She continues on her Creon, famotidine, Colace and dicyclomine. It has been over a year since I have seen her, apparently she was late for a few last of the day appointments and had to be rescheduled. She finds the creon makes her more gassy if she takes it too often (? promoting cic), and she uses the bentyl prn as well. She continues on her famotidine and we discuss moving the dose back in the day because if she takes is laying down (qhs) she will have bad HB. She has been gaining weight, she also has back problems and is having tremors of her hands ROV 6 mos. Orders: Orders Comprehensive Met. Panel 10/12/23 K75.81 - Nonalcoholic steatohepatitis (AUGUSTINE) Complete Blood Count Auto Diff 10/12/23 K75.81 - Nonalcoholic steatohepatitis (AUGUSTINE) US abdomen complete 10/12/23 K75.81 - Nonalcoholic steatohepatitis (AUGUSTINE) Medications: Changed From aazske-yyhylsdw-nrpskvv 24,000-76,000 -120,000 unit 1 cap PO QID PRN K58.9 - Irritable bowel syndrome without diarrhea To aaahdr-cnurivkb-elrzblt 24,000-76,000 -120,000 unit (Creon) 1 cap PO QID 112 caps 6RF K58.9 - Irritable bowel syndrome without diarrhea Refilled famotidine 40 mg PO BEDTIME 28 tabs 6RF K21.9 - Gastro-esophageal reflux disease without esophagitis docusate sodium 100 mg PO BID 56 caps 6RF K59.04 - Chronic idiopathic constipat ion dicyclomine 20 mg PO QID PRN 120 tabs 6RF constipation 30 days K58.2 - Mixed irritable bowel syndrome Coding Level of Care Code Est Pt Level 3 (89247) Diagnoses Irritable bowel syndrome with both constipation and diarrhea K58.2 GERD (gastroesophageal reflux disease) K21.9 AUGUSTINE (nonalcoholic steatohepatitis) K75.81
== END 2023-10-12 15:12 | disposition home or self-care (01) ==
PROVIDERS: PCP Internal Medicine; Visit Provider Nurse Practitioner
DX: K58.2 Mixed irritable bowel syndrome (principal); K21.9 Gastro-esophageal reflux disease without esophagitis; K75.81 Nonalcoholic steatohepatitis (NASH)
CPT/HCPCS: 99213

== ENCOUNTER → 2023-10-12 14:23 | Outpatient (BNVA) | payer OTHER, SELFPAY | PROVIDERS: PCP Internal Medicine; Visit Provider Nurse Practitioner | DX: K58.2 Mixed irritable bowel syndrome (principal); K21.9 Gastro-esophageal reflux disease without esophagitis; K75.81 Nonalcoholic steatohepatitis (NASH); Z79.899 Other long term (current) drug therapy | CPT/HCPCS: 99212 ==

== ENCOUNTER 2023-10-16 15:02 | Outpatient (AMB) | payer OTHER, SELFPAY ==
--- NOTE | 2023-10-16 15:10 | MHC.OFFVIS ---
Vital Signs 10/16/23 15:15 Height 5 ft 2 in Weight 308 lb 4 oz BMI 56.4 BP 100/62 Blood Pressure Location Lt brachial Position Sitting Pulse 69 Pulse Source Pulse Oximeter Pulse Oximetry (%) 97 Oxygen Delivery Method Room Air Intake Visit Reasons: 4m f/u for Sleep / Snoring / Obesity - CONF w/add Intake Note: Patient presents 4 month f/u. Allergies diphtheria,pertussis,tetanus, Haem. [DIP,PERT,TET, HAEM. CONJ VACC] Allergy (Severe, Verified 10/16/23 15:14) DIFFICULTY BREATHING strawberry Allergy (Unknown, Verified 10/16/23 15:14) Swelling, hives hydrocodone [Vicodin] Adverse Reaction (Unknown, Verified 10/16/23 15:14) vomiting HPI Comments Details: 38 y/o female patient presents for follow up of sleep study. The home sleep study result was significant for a severe degree of sleep apnea. The AHI was 24/hr and oxygen arturo was 67%. The total duration of O2 sat below 88% for 2.1 min. She continues to have interrupted sleep, daytime sleepiness with brain fog. [facility] Medical History Migraine Sleeping difficulty Seasonal allergic rhinitis Erythema intertrigo Dyslipidemia Chronic low back pain Cervical cancer screening Fatigue Morbid obesity due to excess calories Choledocholithiasis Bipolar disorder (manic depression) Scheuermann's kyphosis Surgical History History of ERCP Family History Father Acute myocardial infarction History of CVA (cerebrovascular accident) CVD (cardiovascular disease) Hyperlipidemia Substance abuse Mental health disorder Mother Substance abuse Mental health disorder Brother No problems noted. Brother Mental health disorder Sister Substance abuse Social History Housing: Apartment Alcohol intake: current Alcohol intake frequency: does not drink Patient Tobacco Use Status: Former Tobacco user Cigarette Packs Per Day: 1.5 Cigarettes Per Day: 30 Years Smoked: 15 e-Cigarette/Vaping Use: Never Used Second Hand Smoke Exposure: No service: No Current occupational status: disabled Current occupational exposures/hazards: No Cognitive needs: No Hearing needs: No Vision needs: Yes Female Reproductive History Menstrual Age of Menarche: 9 Review of Systems Const All systems reviewed & are unremarkable except as noted in HPI and below ENT Reports Normal hearing present Neuro Reports Normal hearing present Physical Exam Vital Signs: Last Vital Signs Pulse 69 10/16/23 15:15 BP 100/62 10/16/23 15:15 Pulse Ox 97 10/16/23 15:15 Oxygen Delivery Method Room Air 10/16/23 15:15 BMI result Body Mass Index 56.4 Const General: cooperative and tired appearing Nutritional Appearance: obese Orientation/consciousness: patient oriented x3 Neck Neck: Yes full ROM and Yes supple Neuro General: patient oriented x3 and gait normal Cranial nerves: Yes Bilaterally intact EOM present, Yes Normal facial strength present, Yes Midline tongue present, Yes Symmetric palate elevation present, Yes Normal hearing present, Yes Ability to bilaterally rotate head present and Yes Ability to bilaterally elevate shoulders present Cognition (Neuro): normal cognition Gait exam (Neuro): Normal gait present Motor exam (neuro): 5/5 motor strength present throughout, Pronator motor function not present and no tremor noted Psych Appearance: grossly normal Mental Status: mental status grossly normal Speech and movement: Normal speech and movement present Affect: normal affect Attitude: cooperative Assessment & Plan Assessment & Plan (1) JUNO (obstructive sleep apnea): Comment: A severe degree of sleep apnea. AHI was 24 and oxygen arturo was 67%. Code(s): G47.33 - Obstructive sleep apnea (adult) (pediatric) Category: Medical Plan Advised patient to start APAP at [id number]. Stressed compliance, use CPAP nightly and more than 4 hrs. Continue to practice sleep hygiene and wt reduction advised. Coding Level of Care Code Est Pt Level 3 (28336) Diagnoses JUNO (obstructive sleep apnea) G47.33
[2023-10-16 15:15] VITALS: BP 100/62; PULSE 69; O2SAT 97; BMI 56.4
== END 2023-10-16 15:34 | disposition home or self-care (01) ==
PROVIDERS: PCP Internal Medicine; Visit Provider Nurse Practitioner Family
DX: G47.33 Obstructive sleep apnea (adult) (pediatric) (principal)
CPT/HCPCS: 99213

== ENCOUNTER → 2023-10-16 15:02 | Outpatient (BNVA) | payer OTHER, SELFPAY | PROVIDERS: PCP Internal Medicine; Visit Provider Nurse Practitioner Family | DX: G47.33 Obstructive sleep apnea (adult) (pediatric) (principal) | CPT/HCPCS: 99212 ==

== ENCOUNTER 2023-10-26 14:30 | Outpatient (REF) | payer OTHER, SELFPAY ==
--- NOTE | ~2023-10-26 | US_ITS ---
EXAMINATION: US ABDOMEN COMPLETE CLINICAL INFORMATION: Nonalcoholic steatohepatitis (AUGUSTINE). COMPARISON: CT abdomen without and with contrast 06/15/2022. Ultrasound abdomen limited 09/09/2021 and 10/28/2020. TECHNIQUE: Real-time imaging of the abdominal viscera. FINDINGS: PANCREAS: The pancreas is obscured by bowel gas. ABDOMINAL AORTA: The abdominal aorta is not well seen due to bowel gas. INFERIOR VENA CAVA: The inferior vena cava is not well seen due to bowel gas. LIVER: The liver is normal in size. The liver contour is normal. There is diffuse increased liver parenchymal echogenicity, consistent with hepatic steatosis. No focal hepatic lesion. There is no intrahepatic biliary duct dilatation seen. GALLBLADDER: Surgically absent. COMMON BILE DUCT: Normal in caliber measuring 0.2 cm in diameter. RIGHT KIDNEY: Normal. No hydronephrosis. No renal calculi or focal parenchymal lesions. The kidney measures 10.1 cm in maximum dimension. LEFT KIDNEY: Normal. No hydronephrosis. No renal calculi or focal parenchymal lesions. The kidney measures 9.2 cm in maximum dimension. SPLEEN: Normal. The spleen measures 8.7 cm in maximum dimension. FREE FLUID: None. US/US abdomen complete IMPRESSION: 1. Hepatic steatosis. 2. Prior cholecystectomy. 3. The pancreas, abdominal aorta and inferior vena cava are not well seen due to bowel gas.
== END 2023-10-26 14:31 | disposition home or self-care (01) ==
LOC: HO.US 14:30
PROVIDERS: PCP Internal Medicine; Visit Provider Nurse Practitioner
DX: K75.81 Nonalcoholic steatohepatitis (NASH) (principal)
CPT/HCPCS: 76700

== ENCOUNTER 2024-01-12 15:35 | Outpatient (AMB) | payer OTHER, SELFPAY ==
--- NOTE | 2024-01-12 15:36 | A.OFFVIS_ITS ---
Vital Signs 01/12/24 15:37 Height 5 ft 2 in Weight 311 lb BMI 56.9 Intake Visit Reasons: CPAP follow up CONF Intake Note: Patient presents for CPAP follow up. Patient has been using CPAP but hose has a hole. Allergies diphtheria,pertussis,tetanus, Haem. [DIP,PERT,TET, HAEM. CONJ VACC] Allergy (Severe, Verified 01/12/24 15:40) DIFFICULTY BREATHING strawberry Allergy (Unknown, Verified 01/12/24 15:40) Swelling, hives hydrocodone [Vicodin] Adverse Reaction (Unknown, Verified 01/12/24 15:40) vomiting Medication List - Last Reconciled 01/12/24 by ERNESTINE Jiang ascorbic acid (vitamin C) mg PO bupropion HCl XL 300 mg PO DAILY calcium polycarbophil (Fiber Laxative (calcium polycarbophil)) 1,250 mg (2 x 625 mg) PO BID 30 days carboxymethylcellulose sodium 0.5% 0 drps ophthalmic (eye) carisoprodol 350 mg PO BID PRN cetirizine 10 mg PO DAILY PRN cholecalciferol (vitamin D3) 50 mcg PO DAILY cranberry 400 mg PO DAILY cranberry extract 200 mg PO DAILY dicyclomine 20 mg PO QID PRN 30 days docusate sodium 100 mg PO BID famotidine 40 mg PO BEDTIME fluoxetine 0 mg PO hydroxyzine HCl 25 mg PO TID PRN lactobacillus combination no.9 (Adult 50 Plus Probiotic) PO DAILY lidocaine HCl 4% (Aspercreme (lidocaine HCl)) 1 appl topical BID PRN [id number] 24,000-76,000 -120,000 unit (Creon) 1 cap PO QID lorazepam 1 mg PO DAILY PRN magnesium glycinate 100 mg PO DAILY melatonin mg PO multivitamin 1 tab PO DAILY nabumetone 500 mg PO BID PRN nystatin 1 appl topical BID rizatriptan (Maxalt) take 1 tab at onset of headache; if no relief may repeat 1 tab after at least 2 hrs; max = 3 tabs/24 hr PO Saccharomyces boulardii (Digest Probiotic (S.boulardii)) 250 mg PO BID tizanidine 4 mg PO BID PRN HPI Comments Details: 38-yr-old female presents for f/u visit of JUNO. Pt denies any significant interval medical changes. Pt has started using PAP tx- she is beginning to tolerate it. The mask may leak at times. Overall good use. Has occasional migraine responsive to rizatriptan. Notes hse has more bothersome either not right in space or room spinning vertigo. Has seen ENT- has enlarged tonsils/adnoids, but was hesitant to have them removed. Has never done vestibualr tx Resp supplier: [facility] Compliance Report Usage 12/13/2023 - 01/11/2024 Usage days 30/30 days (100%) Usage days >= 4 hours 29 days (97%) Usage days < 4 hours 1 days (3%) Average usage (days used) 6 hours 46 minutes Median usage (days used) 6 hours 40 minutes AirSense 10 AutoSet Serial number [id number] Mode AutoSet Min Pressure 5 cmH2O Max Pressure 20 cmH2O EPR Fulltime EPR level 2 Response Standard Therapy Pressure - Maximum: 14.9 cmH2O. Leaks - L/min Median: 0.0 95th percentile: 4.6 Maximum: 23.6 Events per hour AI: 1.0 HI: 0.3 AHI: 1.3 PFSH Medical History Migraine Sleeping difficulty Seasonal allergic rhinitis Erythema intertrigo Dyslipidemia Chronic low back pain Cervical cancer screening Fatigue Morbid obesity due to excess calories Choledocholithiasis Bipolar disorder (manic depression) Scheuermann's kyphosis Surgical History History of ERCP Family History Father Acute myocardial infarction History of CVA (cerebrovascular accident) CVD (cardiovascular disease) Hyperlipidemia Substance abuse Mental health disorder Mother Substance abuse Mental health disorder Brother No problems noted. Brother Mental health disorder Sister Substance abuse Social History Housing: Apartment Alcohol intake: current Alcohol intake frequency: does not drink Patient Tobacco Use Status: Former Tobacco user Cigarette Packs Per Day: 1.5 Cigarettes Per Day: 30 Years Smoked: 15 e-Cigarette/Vaping Use: Never Used Second Hand Smoke Exposure: No service: No Current occupational status: disabled Current occupational exposures/hazards: No Cognitive needs: No Hearing needs: No Vision needs: Yes Female Reproductive History Menstrual Age of Menarche: 9 Physical Exam Vital Signs: BMI result Body Mass Index 56.9 Const General: cooperative and no acute distress Orientation/consciousness: patient oriented x3 HEENT Other: Mallampati garde IV Resp Effort & Inspection: normal respiratory effort and able to speak in complete sentences Neuro General: patient oriented x3 Cranial nerves: Yes CN's II-XII intact bilaterally Cognition (Neuro): normal cognition Psych Appearance: grossly normal Mental Status: mental status grossly normal Speech and movement: Normal speech and movement present Affect: normal affect Attitude: cooperative Assessment & Plan Assessment & Plan (1) JUNO (obstructive sleep apnea): Comment: A severe degree of sleep apnea. AHI was 24 and oxygen arturo was 67%. Code(s): G47.33 - Obstructive sleep apnea (adult) (pediatric) Category: Medical (2) Vertigo: Code(s): R42 - Dizziness and giddiness Category: Medical Plan Continue APAP 5-20 cmH2O w/ EPR 2. Advised to try a new mask when her mask replacemnet is due. Routinely clean and change PAP supplies . For vertigo- PT eval & tx- vestibular tx For migraine- Pt doing well on current caute Rizatriptan tx Will monitor. Orders: Orders PT Evaluation and Treatment 01/12/24 R42 - Dizziness and giddiness Coding Level of Care Code Est Pt Level 4 (22770) Diagnoses JUNO (obstructive sleep apnea) G47.33 Vertigo R42
[2024-01-12 15:37] VITALS: BMI 56.9
== END 2024-01-12 16:22 | disposition home or self-care (01) ==
PROVIDERS: PCP Internal Medicine; Visit Provider Nurse Practitioner Family
DX: G47.33 Obstructive sleep apnea (adult) (pediatric) (principal); R42 Dizziness and giddiness
CPT/HCPCS: 99214

== ENCOUNTER → 2024-01-12 15:35 | Outpatient (BNVA) | payer OTHER, SELFPAY | PROVIDERS: PCP Internal Medicine; Visit Provider Nurse Practitioner Family | DX: G47.33 Obstructive sleep apnea (adult) (pediatric) (principal); R42 Dizziness and giddiness; Z99.89 Dependence on other enabling machines and devices | CPT/HCPCS: 99212 ==

== ENCOUNTER 2024-04-26 12:57 | Outpatient (AMB) | payer OTHER, SELFPAY ==
--- NOTE | 2024-04-26 13:03 | MHC.OFFVIS ---
Vital Signs 04/26/24 13:04 Height 5 ft 2 in Intake Visit Reasons: 7 month F/U Intake Note: Patient presents for follow up on sleep. Allergies diphtheria,pertussis,tetanus, Haem. [DIP,PERT,TET, HAEM. CONJ VACC] Allergy (Severe, Verified 04/26/24 13:05) DIFFICULTY BREATHING strawberry Allergy (Unknown, Verified 04/26/24 13:05) Swelling, hives hydrocodone [Vicodin] Adverse Reaction (Unknown, Verified 04/26/24 13:05) vomiting Medication List - Last Reconciled 04/26/24 by ERNESTINE Jiang ascorbic acid (vitamin C) mg PO bupropion HCl XL 300 mg PO DAILY calcium polycarbophil (Fiber Laxative (calcium polycarbophil)) 1,250 mg (2 x 625 mg) PO BID 30 days carboxymethylcellulose sodium 0.5% 0 drps ophthalmic (eye) carisoprodol 350 mg PO BID PRN cetirizine 10 mg PO DAILY PRN cholecalciferol (vitamin D3) 50 mcg PO DAILY cranberry 400 mg PO DAILY cranberry extract 200 mg PO DAILY dicyclomine 20 mg PO QID PRN 30 days docusate sodium 100 mg PO BID famotidine 40 mg PO BEDTIME fluoxetine 0 mg PO hydroxyzine HCl 25 mg PO TID PRN lactobacillus combination no.9 (Adult 50 Plus Probiotic) PO DAILY lidocaine HCl 4% (Aspercreme (lidocaine HCl)) 1 appl topical BID PRN arddtc-lggtkxky-hkiwrgw 24,000-76,000 -120,000 unit (Creon) 1 cap PO QID lorazepam 1 mg PO DAILY PRN magnesium glycinate 100 mg PO DAILY melatonin mg PO multivitamin 1 tab PO DAILY nabumetone 500 mg PO BID PRN nystatin 1 appl topical BID rizatriptan (Maxalt) take 1 tab at onset of headache; if no relief may repeat 1 tab after at least 2 hrs; max = 3 tabs/24 hr PO Saccharomyces boulardii (Digest Probiotic (S.boulardii)) 250 mg PO BID tizanidine 4 mg PO BID PRN HPI Comments Details: 38-yr-old female presents for f/u visit of JUNO and states headaches have been increased. Pt denies any significant interval medical changes. Pt has been compliant w/ CPAP, w/ good reduction is residual AHI. She wonders about trying a mouth guard for JUNO. The dizziness is betetr- prone to occur if standing up quickly. Dizziness is either not right in space or room spinning vertigo. Has seen ENT- has enlarged tonsils/adnoids, but was hesitant to have them removed. Has not yet done vestibualr tx- states could not get in yet. She has had an increase in migraines in the last week- states this can happen sometimes. Overall she has 2-3 migraine attacks per month, which lasts 1-2 days. Describes her migraine- may start at base of neck, temples, throbbing, a/w photophobia, phonophobia, nausea, occasional vomiting, dizziness, activity intolerance, rarely may see halos around lights- can occur w/wo headache. Postdrome- lingering headache. Treats with fluids, rest, and her triptan. States Sumatriptan or rizatriptan work- though effect varies. Previous acute migraine treatment: fioricet- effect varied. Previous preventive migraine treatments: Amitriptyline- ineffective though used for alternate dx. Topiramate- not tolerated- taste changes. She does have occasional leg cramps- better on Magnesium. Does have IBS-C. Resp supplier: [facility] Compliance Report Usage 03/28/2024 - 04/26/2024 Usage days 30/30 days (100%) >= 4 hours 27 days (90%) < 4 hours 3 days (10%) Usage hours 198 hours 34 minutes Average usage (total days) 6 hours 37 minutes Average usage (days used) 6 hours 37 minutes Median usage (days used) 6 hours 28 minutes Total used hours (value since last reset - 04/26/2024) 1,085 hours AirSense 10 AutoSet Serial number [id number] Mode AutoSet Min Pressure 5 cmH2O Max Pressure 20 cmH2O EPR Fulltime EPR level 2 Response Standard Therapy Pressure - cmH2O Median: 9.5 95th percentile: 12.5 Maximum: 13.9 Leaks - L/min Median: 4.3 95th percentile: 22.2 Maximum: 44.8 Events per hour AI: 0.8 HI: 0.3 AHI: 1.1 PFSH Medical History Migraine Sleeping difficulty Seasonal allergic rhinitis Erythema intertrigo Dyslipidemia Chronic low back pain Cervical cancer screening Fatigue Morbid obesity due to excess calories Choledocholithiasis Bipolar disorder (manic depression) Scheuermann's kyphosis Surgical History History of ERCP Family History Father Acute myocardial infarction History of CVA (cerebrovascular accident) CVD (cardiovascular disease) Hyperlipidemia Substance abuse Mental health disorder Mother Substance abuse Mental health disorder Brother No problems noted. Brother Mental health disorder Sister Substance abuse Social History Housing: Apartment Alcohol intake: current Alcohol intake frequency: does not drink Patient Tobacco Use Status: Former Tobacco user Cigarette Packs Per Day: 1.5 Cigarettes Per Day: 30 Years Smoked: 15 e-Cigarette/Vaping Use: Never Used Second Hand Smoke Exposure: No service: No Current occupational status: disabled Current occupational exposures/hazards: No Cognitive needs: No Hearing needs: No Vision needs: Yes Female Reproductive History Menstrual Age of Menarche: 9 Physical Exam Const General: cooperative and no acute distress Orientation/consciousness: patient oriented x3 HEENT Other: Mallampati garde IV Resp Effort & Inspection: normal respiratory effort and able to speak in complete sentences Neuro General: patient oriented x3 Cranial nerves: Yes CN's II-XII intact bilaterally Cognition (Neuro): normal cognition Psych Appearance: grossly normal Mental Status: mental status grossly normal Speech and movement: Normal speech and movement present Affect: normal affect Attitude: cooperative Assessment & Plan Assessment & Plan (1) JUNO (obstructive sleep apnea): Comment: A moderate degree of sleep apnea. AHI was 24 and oxygen arturo was 67%. Code(s): G47.33 - Obstructive sleep apnea (adult) (pediatric) Category: Medical (2) Migraine without aura: Code(s): G43.009 - Migraine without aura, not intractable, without status migrainosus Category: Medical (3) Vertigo: Code(s): R42 - Dizziness and giddiness Category: Medical Plan For JUNO: Will request ENT consult. Can consider mandibular device tx- though discussed this is often more effective in mild sleep apnea. For now, continue APAP 5-20 cmH2O w/ EPR 2, as pt has had good reduction in residual AHI. Routinely clean and change PAP supplies. Information shared w/ pt on resources to optimize sleep hygiene, quality. For vertigo- Improved, if worsens will revisit referral to PT for vestibular tx For migraine w/o aura- Trial eletriptan 40mg tab- inhopes this is more effective than rizatriptan or sumatriptan. Instructions: Eletriptan (20-40mg) at onset of headache, may repeat in 2 hours. Max of 2 tabs (40mg) per 24 hours. May adjunct with OTC Tylenol 650mg q 4 hours, Ibuprofen 600mg q 6 hours, or Naproxen 440mg q 12 hrs prn. Potential adverse effects of triptans, include but are not limited to nausea, fatigue, chest tightness/tingling (usually passes within a few minutes), medication overuse headaches. Carry triptan w/ he rat all times. Complementary migraine interventions shared w/ pt. Previous acute migraine treatment: fioricet- effect varied. Previous preventive migraine treatments: Amitriptyline- ineffective though used for alternate dx. Topiramate- not tolerated- taste changes. Migraine tx contraindications: Aimovig d/t constipation. Beta-blockers d/t risk fo worsening mood. Future considerations- CGRP MaB Orders: Referrals Ear/Nose/Throat Referral G47.33 - Obstructive sleep apnea (adult) (pediatric) Medications: New eletriptan take 1 tab at onset of headache; if no relief, may repeat 1 tab after at least 2 hrs; max = 2 tabs/24 hrs PO 30 days 12 tabs 3RF Coding Level of Care Code Est Pt Level 4 (18149) Diagnoses JUNO (obstructive sleep apnea) G47.33 Migraine without aura G43.009 Vertigo R42
== END 2024-04-26 13:51 | disposition home or self-care (01) ==
PROVIDERS: PCP Internal Medicine; Visit Provider Nurse Practitioner Family
DX: G47.33 Obstructive sleep apnea (adult) (pediatric) (principal); G43.009 Migraine without aura, not intractable, without status migrainosus; R42 Dizziness and giddiness
CPT/HCPCS: 99214

== ENCOUNTER → 2024-04-26 12:57 | Outpatient (BNVA) | payer OTHER, SELFPAY | PROVIDERS: PCP Internal Medicine; Visit Provider Nurse Practitioner Family | DX: G47.33 Obstructive sleep apnea (adult) (pediatric) (principal); G43.009 Migraine without aura, not intractable, without status migrainosus; R42 Dizziness and giddiness | CPT/HCPCS: 99212 ==

== ENCOUNTER 2024-06-05 15:49 | Outpatient (REF) | payer OTHER, SELFPAY ==
[2024-06-05 16:07] LABS: MANUAL DIFF FLAG NO
[2024-06-05 16:58] LABS: Basophils Percent Auto 0.4 % (0-2); Eosinophils Absolute Auto 0.2 X10*3/uL (0.0-0.4); Eosinophils Percent Auto 3.2 % (0-4); Hematocrit 43.2 % (37.0-47.0); Imm Gran Abs Auto 0.02 X10*3/uL (0.00-0.03); Imm Gran Pct Auto 0.3 % (0.0-0.4); Lymphocytes Absolute Auto 2.7 X10*3/uL (1.2-4.9); Lymphocytes Percent Auto 39.1 % (20-40); Mean Corpuscular HGB Conc 32.4 g/dl (31.0-35.0); Mean Corpuscular Hemoglobin 30.6 pg (27.0-33.0); Mean Corpuscular Volume 94.5 fL (80.0-98.0); Mean Platelet Volume 8.6 fL (9.4-12.3); Monocytes Absolute Auto 0.5 X10*3/uL (0.1-1.2); Monocytes Percent Auto 7.6 % (2-11); Neutrophils Absolute Auto 3.4 x10*3/uL (2.0-8.3); Neutrophils Percent Auto 49.4 % (45-73); Platelet Count 300 X10*3/uL (160-400); Red Blood Count 4.57 X10*6/uL (4.20-5.50); Red Cell Distribution Width 12.7 % (11.0-16.0); White Blood Count 6.9 X10*3/uL (4.8-10.8)
[2024-06-05 17:49] LABS: Alanine Aminotransferase 25 U/L (0-31); Albumin Level 3.6 g/dL (3.5-5.0); Alkaline Phosphatase 53 U/L (39-117); Anion Gap 9 (12-20); Aspartate Amino Transferase 21 U/L (5-31); Bilirubin Total 0.5 mg/dL (0.0-1.0); Blood Urea Nitrogen 12 mg/dL (9-16); Calcium 9.6 mg/dL (8.4-10.2); Carbon Dioxide 26 mmol/L (22-29); Chloride 109 mmol/L (96-108); Estimated Glomerular Filt Rate > 60; Glucose Random 94 mg/dL (60-115); Potassium 4.3 mmol/L (3.3-5.1); Sodium 140 mmol/L (135-145); Total Protein 6.5 g/dL (6.5-8.0)
== END 2024-06-05 15:50 | disposition home or self-care (01) ==
LOC: HO.LAB 15:49
PROVIDERS: PCP Internal Medicine; Visit Provider Nurse Practitioner
DX: K75.81 Nonalcoholic steatohepatitis (NASH) (principal)
CPT/HCPCS: 36415; 80053; 85025

== ENCOUNTER 2024-06-07 14:57 | Outpatient (AMB) | payer OTHER, SELFPAY ==
[2024-06-07 15:16] VITALS: BP 84/50; PULSE 72; O2SAT 97; BMI 57.3
--- NOTE | 2024-06-07 15:16 | A.OFFVIS_ITS ---
Vital Signs 06/07/24 15:16 Height 5 ft 2 in Weight 313 lb 0.902 oz BMI 57.3 BP 84/50 L Blood Pressure Location Rt brachial Position Sitting Pulse 72 Pulse Oximetry (%) 97 Intake Visit Reasons: 6 mnth follow up Intake Note: Patient in office today in 6 months follow up of labs. CC: Patient reports doing the same and denies any new GI symptoms today. CC: Intensive Care Medicine Specialist Required: No Allergies diphtheria,pertussis,tetanus, Haem. [DIP,PERT,TET, HAEM. CONJ VACC] Allergy (Severe, Verified 06/07/24 15:24) DIFFICULTY BREATHING strawberry Allergy (Unknown, Verified 06/07/24 15:24) Swelling, hives hydrocodone [Vicodin] Adverse Reaction (Unknown, Verified 06/07/24 15:24) vomiting HPI HPI 6 mnth follow up: Details: Assessment & Plan (1) Irritable bowel syndrome with both constipation and diarrhea: Code(s): K58.2 - Mixed irritable bowel syndrome Category: Medical (2) GERD (gastroesophageal reflux disease): Code(s): K21.9 - Gastro-esophageal reflux disease without esophagitis Category: Medical (3) AUGUSTINE (nonalcoholic steatohepatitis): Code(s): K75.81 - Nonalcoholic steatohepatitis (AUGUSTINE) Category: Medical Plan She continues on her Creon, famotidine, Colace and dicyclomine. It has been over a year since I have seen her, apparently she was late for a few last of the day appointments and had to be rescheduled. She finds the creon makes her more gassy if she takes it too often (? promoting cic), and she uses the bentyl prn as well. She continues on her famotidine and we discuss moving the dose back in the day because if she takes is laying down (qhs) she will have bad HB. She has been gaining weight, she also has back problems and is having tremors of her hands ROV 6 mos. Orders: Orders Comprehensive Met. Panel 10/12/23 K75.81 - Nonalcoholic steatohepatitis (AUGUSTINE) Complete Blood Count Auto Diff 10/12/23 K75.81 - Nonalcoholic steatohepatitis (AUGUSTINE) US abdomen complete 10/12/23 K75.81 - Nonalcoholic steatohepatitis (AUGUSTINE) Medications: Changed From uqdcil-uaekpnab-ltukmsk 24,000-76,000 -120,000 unit 1 cap PO QID PRN K58.9 - Irritable bowel syndrome without diarrhea To pcptsl-uyekjorb-ukqbgeh 24,000-76,000 -120,000 unit (Creon) 1 cap PO QID 112 caps 6RF K58.9 - Irritable bowel syndrome without diarrhea Refilled famotidine 40 mg PO BEDTIME 28 tabs 6RF K21.9 - Gastro-esophageal reflux disease without esophagitis docusate sodium 100 mg PO BID 56 caps 6RF K59.04 - Chronic idiopathic constipat ion dicyclomine 20 mg PO QID PRN 120 tabs 6RF constipation 30 days K58.2 - Mixed irritable bowel syndrome LABS: Laboratory Tests 06/05/24 16:06 WBC 6.9 Hgb 14.0 Hct 43.2 Plt Count 300 Estimated GFR > 60 Total Bilirubin 0.5 AST 21 ALT 25 Alkaline Phosphatase 53 Laboratory Tests 11/14/19 15:20 Anti-Mitochondrial Ab Negative Anti-Smooth Muscle Ab <20 ULTRASOUND OF THE ABDOMEN 10/30/23 FINDINGS: PANCREAS: The pancreas is obscured by bowel gas. ABDOMINAL AORTA: The abdominal aorta is not well seen due to bowel gas. INFERIOR VENA CAVA: The inferior vena cava is not well seen due to bowel gas. LIVER: The liver is normal in size. The liver contour is normal. There is diffuse increased liver parenchymal echogenicity, consistent with hepatic steatosis. No focal hepatic lesion. There is no intrahepatic biliary duct dilatation seen. GALLBLADDER: Surgically absent. COMMON BILE DUCT: Normal in caliber measuring 0.2 cm in diameter. RIGHT KIDNEY: Normal. No hydronephrosis. No renal calculi or focal parenchymal lesions. The kidney measures 10.1 cm in maximum dimension. LEFT KIDNEY: Normal. No hydronephrosis. No renal calculi or focal parenchymal lesions. The kidney measures 9.2 cm in maximum dimension. SPLEEN: Normal. The spleen measures 8.7 cm in maximum dimension. FREE FLUID: None. US/US abdomen complete IMPRESSION: 1. Hepatic steatosis. 2. Prior cholecystectomy. 3. The pancreas, abdominal aorta and inferior vena cava are not well seen due to bowel gas. TODAYS VISIT She continues on her famotidine, bentyl, fiber, colace, creon and now she wants to use OTC chewable simethicone. She is having lower ext edema that is being worked up. She is having trouble losing weight and asks if she needs a referral to [facility], but I don't know she will have to call the mgmt ctr and discuss this with her PCP. She is taking an OTC liver support containing milk thistle and marshmellow - this is ok. Liver fxn look good. ROV 6 mos. PFSH Medical History Migraine Sleeping difficulty Seasonal allergic rhinitis Erythema intertrigo Dyslipidemia Chronic low back pain Cervical cancer screening Fatigue Morbid obesity due to excess calories Choledocholithiasis Bipolar disorder (manic depression) Scheuermann's kyphosis Surgical History History of ERCP Family History Father Acute myocardial infarction History of CVA (cerebrovascular accident) CVD (cardiovascular disease) Hyperlipidemia Substance abuse Mental health disorder Mother Substance abuse Mental health disorder Brother No problems noted. Brother Mental health disorder Sister Substance abuse Social History Housing: Apartment Alcohol intake: current Alcohol intake frequency: does not drink Patient Tobacco Use Status: Former Tobacco user Cigarette Packs Per Day: 1.5 Cigarettes Per Day: 30 Years Smoked: 15 e-Cigarette/Vaping Use: Never Used Second Hand Smoke Exposure: No service: No Current occupational status: disabled Current occupational exposures/hazards: No Cognitive needs: No Hearing needs: No Vision needs: Yes Female Reproductive History Menstrual Age of Menarche: 9 Review of Systems Const Denies fatigue, Denies fever(s), Denies night sweats, Denies poor appetite and Denies weight loss Eyes Details: glasses Reports requires corrective lenses ENT Reports Normal hearing present, Denies dental pain, Denies dysphagia, Denies hearing loss, Denies mouth pain, Denies odynophagia, Denies throat swelling, Denies tongue swelling and Reports other (Dentition adequate) Card Reports pedal edema Resp Reports no additional complaints GI Details: Denies abdominal pain, Denies melena, Reports bloating, Denies hematochezia, Reports constipation, Denies GI cramping, Denies dysphagia, Reports excessive flatus, Denies early satiety, Reports heartburn, Denies diarrhea, Denies nausea, Denies odynophagia, Denies vomiting and Denies hematemesis Musc Reports back pain and Reports arthralgias Skin/Breast Denies pruritus, Denies lesions, Denies rash and Denies jaundice Neuro Reports Normal hearing present and Denies Abnormal speech present Endo Denies fatigue Aller/Immun Denies throat swelling and Denies tongue swelling Physical Exam Vital Signs: Last Vital Signs Pulse 72 06/07/24 15:16 BP 84/50 L 06/07/24 15:16 Pulse Ox 97 06/07/24 15:16 BMI result Body Mass Index 57.3 Const General: cooperative, no acute distress, well developed and well groomed Nutritional Appearance: well nourished and obese morbidly obese Orientation/consciousness: oriented to person, oriented to place and oriented to time Limitations: No language barrier HEENT Head: Yes normocephalic and Yes atraumatic Eyes General: appearance normal, both eyes and all related structures Pupils: Equal, round and reactive pupils present Neck Neck: Yes normal visual inspection and Yes no lymphadenopathy Thyroid: Thyroid normal Resp Effort & Inspection: normal respiratory effort and able to speak in complete sentences Auscultation: clear to auscultation bilaterally Cardio Rate: regular rate Rhythm: regular rhythm Heart sounds: Normal, physiologic split S2 sound present Peripheral pulses: radial pulses present and posterior tibial pulses present GI Inspection: No distended, Yes Abdominal panniculus present and Yes obesity Palpation (GI): Soft to palpation, nontender, no guarding, not rigid and No hepatosplenomegaly present Percussion: Yes normal to percussion Auscultation: normal bowel sounds Rectal Exam - Female: deferred Skin General skin exam: no rashes or lesions noted, turgor normal, skin not dry, no jaundice, No spider nevi and no striae Rashes: no rashes Nails: normal Neuro General: oriented to person, oriented to place and oriented to time Cranial nerves: Yes Equal, round and reactive pupils present and Yes Normal hearing present Speech: No Abnormal speech present Extrem General: Yes normal to inspection, No clubbing, No cyanosis and No edema Psych Appearance: grossly normal and well kempt Mental Status: mental status grossly normal Speech and movement: Normal speech and movement present Affect: normal affect Attitude: cooperative Thought process: Normal thought process present and not confabulating Thought content: Normal thought content present Insight: Fair insight present (Psych) Judgement: Fair judgement present (Psych) Assessment & Plan Assessment & Plan (1) Irritable bowel syndrome with both constipation and diarrhea: Code(s): K58.2 - Mixed irritable bowel syndrome Category: Medical (2) GERD (gastroesophageal reflux disease): Code(s): K21.9 - Gastro-esophageal reflux disease without esophagitis Category: Medical (3) AUGUSTINE (nonalcoholic steatohepatitis): Comment: BASELINE Laboratory Tests 06/05/24 16:06 WBC 6.9 Hgb 14.0 Hct 43.2 Plt Count 300 Estimated GFR > 60 Total Bilirubin 0.5 AST 21 ALT 25 Alkaline Phosphatase 53 11/14/19 15:20 Anti-Mitochondrial Ab Negative Anti-Smooth Muscle Ab <20 Given this was an incidental finding on imaging and the normal transaminases serology is not warranted. CURRENT LABS ULTRASOUND OF THE ABDOMEN 10/30/23 FINDINGS: PANCREAS: The pancreas is obscured by bowel gas. ABDOMINAL AORTA: The abdominal aorta is not well seen due to bowel gas. INFERIOR VENA CAVA: The inferior vena cava is not well seen due to bowel gas. LIVER: The liver is normal in size. The liver contour is normal. There is diffuse increased liver parenchymal echogenicity, consistent with hepatic steatosis. No focal hepatic lesion. There is no intrahepatic biliary duct dilatation seen. GALLBLADDER: Surgically absent. COMMON BILE DUCT: Normal in caliber measuring 0.2 cm in diameter. RIGHT KIDNEY: Normal. No hydronephrosis. No renal calculi or focal parenchymal lesions. The kidney measures 10.1 cm in maximum dimension. LEFT KIDNEY: Normal. No hydronephrosis. No renal calculi or focal parenchymal lesions. The kidney measures 9.2 cm in maximum dimension. SPLEEN: Normal. The spleen measures 8.7 cm in maximum dimension. FREE FLUID: None. US/US abdomen complete IMPRESSION: 1. Hepatic steatosis. 2. Prior cholecystectomy. 3. The pancreas, abdominal aorta and inferior vena cava are not well seen due to bowel gas. Code(s): K75.81 - Nonalcoholic steatohepatitis (AUGUSTINE) Category: Medical Plan She continues on her famotidine, bentyl, fiber, colace, creon and now she wants to use OTC chewable simethicone. She is having lower ext edema that is being worked up. She is having trouble losing weight and asks if she needs a referral to [facility], but I don't know she will have to call the [facility] ctr and discuss this with her PCP. She is taking an OTC liver support containing milk thistle and marshmellow - this is ok. Liver fxn look good. ROV 6 mos. Medications: New simethicone (Gas Relief (simethicone)) 125 mg PO QID PRN 120 tabs 6RF abdominal distention Refilled famotidine 40 mg PO BEDTIME 28 tabs 3RF K21.9 - Gastro-esophageal reflux disease without esophagitis ezipwa-ugvuvtie-bzonxyy 24,000-76,000 -120,000 unit (Creon) 1 cap PO QID 112 caps 3RF K58.9 - Irritable bowel syndrome, unspecified calcium polycarbophil (Fiber Laxative (calcium polycarbophil)) 1,250 mg (2 x 625 mg) PO BID 120 tabs 6RF 30 days K58.2 - Mixed irritable bowel syndrome dicyclomine 20 mg PO QID PRN 120 tabs 6RF constipation 30 days K58.2 - Mixed irritable bowel syndrome docusate sodium 100 mg PO BID 56 caps 0RF K59.04 - Chronic idiopathic constipation Coding Level of Care Code Est Pt Level 3 (85115) Diagnoses Irritable bowel syndrome with both constipation and diarrhea K58.2 GERD (gastroesophageal reflux disease) K21.9 AUGUSTINE (nonalcoholic steatohepatitis) K75.81
== END 2024-06-07 16:11 | disposition home or self-care (01) ==
PROVIDERS: PCP Internal Medicine; Visit Provider Nurse Practitioner
DX: K58.2 Mixed irritable bowel syndrome (principal); K21.9 Gastro-esophageal reflux disease without esophagitis; K75.81 Nonalcoholic steatohepatitis (NASH)
CPT/HCPCS: 99213

== ENCOUNTER → 2024-06-07 14:57 | Outpatient (BNVA) | payer OTHER, SELFPAY | PROVIDERS: PCP Internal Medicine; Visit Provider Nurse Practitioner | DX: K58.2 Mixed irritable bowel syndrome (principal); K21.9 Gastro-esophageal reflux disease without esophagitis; K75.81 Nonalcoholic steatohepatitis (NASH); K59.04 Chronic idiopathic constipation | CPT/HCPCS: 99212 ==

== ENCOUNTER 2024-07-18 16:09 | Outpatient (AMB) | payer OTHER, SELFPAY ==
[2024-07-18 16:15] VITALS: BP 110/80; PULSE 95; RESP 16; TEMP 35.9; O2SAT 99; BMI 55.8
--- NOTE | 2024-07-18 16:15 | A.OFFPC_ITS ---
Vital Signs 07/18/24 16:15 Height 5 ft 2 in Weight 305 lb BMI 55.8 BP 110/80 Blood Pressure Location Lt brachial Position Sitting Respiration 16 Pulse 95 Pulse Source Pulse Oximeter Temp 96.6 F L Temp Source Temporal Artery Scan Pulse Oximetry (%) 99 Oxygen Delivery Method Room Air Intake Visit Reasons: Cough for 3 weeks Intake Note: Pt is here today for a cough for 3wks Allergies diphtheria,pertussis,tetanus, Haem. [DIP,PERT,TET, HAEM. CONJ VACC] Allergy (Severe, Verified 07/18/24 22:54) DIFFICULTY BREATHING strawberry Allergy (Unknown, Verified 07/18/24 22:54) Swelling, hives hydrocodone [Vicodin] Adverse Reaction (Unknown, Verified 07/18/24 22:54) vomiting Medication List - Last Reconciled 07/18/24 by Shanda Gonzalez MD ascorbic acid (vitamin C) mg PO bupropion HCl XL 300 mg PO DAILY calcium polycarbophil (Fiber Laxative (calcium polycarbophil)) 1,250 mg (2 x 625 mg) PO BID 30 days carboxymethylcellulose sodium 0.5% 0 drps ophthalmic (eye) carisoprodol 350 mg PO BID PRN cetirizine 10 mg PO DAILY PRN cholecalciferol (vitamin D3) 50 mcg PO DAILY cranberry 400 mg PO DAILY dicyclomine 20 mg PO QID PRN 30 days docusate sodium 100 mg PO BID eletriptan take 1 tab at onset of headache; if no relief, may repeat 1 tab after at least 2 hrs; max = 2 tabs/24 hrs PO 30 days famotidine 40 mg PO BEDTIME fluoxetine 0 mg PO hydroxyzine HCl 25 mg PO TID PRN lactobacillus combination no.9 (Adult 50 Plus Probiotic) PO DAILY lidocaine HCl 4% (Aspercreme (lidocaine HCl)) 1 appl topical BID PRN khvyso-zclsepjg-fglaeya 24,000-76,000 -120,000 unit (Creon) 1 cap PO QID lorazepam 1 mg PO DAILY PRN magnesium glycinate 100 mg PO DAILY melatonin mg PO multivitamin 1 tab PO DAILY nabumetone 500 mg PO BID PRN nystatin 1 appl topical BID rizatriptan (Maxalt) take 1 tab at onset of headache; if no relief may repeat 1 tab after at least 2 hrs; max = 3 tabs/24 hr PO simethicone (Gas Relief (simethicone)) 125 mg PO QID PRN tizanidine 4 mg PO BID PRN Tobacco use date assessed: 07/18/24 Dental Screening Dental Screen Date: 07/18/24 Did you have a dental visit in the last 12 months?: No Did you have a dental problem in the last 6 months where you did not have access to dental care?: No Was dental information given to patient?: Patient has dentist HPI Cough for 3 weeks HPI Details 39-year-old lady here today complaining of a cough accompanied way runny nose and nasal congestion present now for the last 3 weeks. Patient states initially started out with a sore throat, accompanied by low-grade fever, and productive cough now improving. Denies any headache, no ear pain, but still gets short of breath especially on climbing stairs. Has just been taking gjlw-uft-kegicmu saline spray and Benadryl affords only temporary relief. Patient declined getting her flu vaccine and COVID booster this season. She has past medical history for dyslipidemia, and vitamin-D deficiency, here for follow-up. Currently not on any statins, admits to not really following any diet, and is mostly sedentary. [facility], [facility] Medical History History of vitamin D deficiency Migraine Sleeping difficulty Seasonal allergic rhinitis Erythema intertrigo Dyslipidemia Chronic low back pain Cervical cancer screening Fatigue Morbid obesity due to excess calories Choledocholithiasis Bipolar disorder (manic depression) Scheuermann's kyphosis Surgical History History of ERCP Family History Father Acute myocardial infarction History of CVA (cerebrovascular accident) CVD (cardiovascular disease) Hyperlipidemia Substance abuse Mental health disorder Mother Substance abuse Mental health disorder Brother No problems noted. Brother Mental health disorder Sister Substance abuse Social History Housing: Apartment Alcohol intake: current Alcohol intake frequency: does not drink Patient Tobacco Use Status: Former Tobacco user Cigarette Packs Per Day: 1.5 Cigarettes Per Day: 30 Years Smoked: 15 e-Cigarette/Vaping Use: Never Used Second Hand Smoke Exposure: No service: No Current occupational status: disabled Current occupational exposures/hazards: No Cognitive needs: No Hearing needs: No Vision needs: Yes Female Reproductive History Menstrual Age of Menarche: 9 Questionnaire PHQ-9 Over the last 2 weeks, how often have you been bothered by any of the following problems? 1. Little interest or pleasure in doing things: nearly every day 2. Feeling down, depressed, or hopeless: nearly every day 3. Trouble falling or staying asleep, or sleeping too much: more than half the days 4. Feeling tired or having little energy: nearly every day 5. Poor appetite or overeating: more than half the days 6. Feeling bad about yourself - or that you are a failure or have let yourself or your family down: more than half the days 7. Trouble concentrating on things, such as reading the newspaper or watching television: more than half the days 8. Moving or speaking so slowly that other people could have noticed. Or the opposite - being so fidgety or restless that you have been moving around a lot more than usual: several days 9. Thoughts that you would be better off or of hurting yourself in some way: several days Total score: 19 Depression Screening Interpretation: Positive (Brittany) Depression Screening Follow-up: Existing condition, In treatment and Community Mental Health Worker F/U Depression Screening Done: Yes Source: Developed by Drs. Boo Zavala, Lexus Saenz, Joseph Walters and colleagues, with an educational tramaine from [employer]. Thrive Questionnaire Date Thrive assessed: 07/18/24 I am a: Patient What is your living situation today?: I have a steady place to live Within the past 12 months, did the food you bought not last and you didn't have the money to get more?: Often true Within the past 12 months, did you worry whether your food would run out before you got money to buy more?: Sometimes True Do you have trouble paying for medicines?: Yes Do you have trouble getting transportation to medical appointments?: I choose not to answer this question Do you have trouble paying your heating and electricity bill?: I choose not to answer this question Do you have trouble taking care of your child, family member or friend?: I choose not to answer this question Do you have trouble with day-to-day activities such as bathing, preparing meals, shopping, managing finances, etc.?: Yes Are you currently unemployed and looking for a job?: No Are you interested in more education?: I choose not to answer this question Please select the resources that you would like help with: None Currently or been in a relationship where the following occur: I choose not to answer THRIVE Score: 2 AUDIT C Alcohol Use Questionnaire (AUDIT-C) 1. How often do you have a drink containing alcohol?: Never Total Score: 0 ELIE-7 AMB Questionnaire ELIE-7 Date ELIE - 7 assessed: 07/18/24 Feeling nervous, anxious, or on edge: 3 = Nearly every day Not being able to stop or control worryin = Nearly every day Worrying too much about different things: 3 = Nearly every day Trouble relaxin = More than half the days Being so restless that it is hard to sit still: 2 = More than half the days Becoming easily annoyed or irritable: 3 = Nearly every day Feeling afraid as if something awful might happen: 2 = More than half the days Total ELIE-7 score (0-4 normal; 5-9 mild; 10-14 moderate; 15-21 severe): 18 Source: Developed by Drs. Boo Zavala, Lexus Saenz, Joseph Walters and colleagues, with an educational tramaine from [employer]. ELIE-7 Assessment Billing ELIE-7 Assessment Tool: ELIE-7 Assessment 52685 Review of Systems Const Reports as per HPI, Reports fatigue, Denies weakness and Reports weight loss Eyes Reports no additional complaints ENT Denies dizziness, Reports otalgia (Intermittent), Denies facial pain, Reports epistaxis (Intermittent), Denies odynophagia, Denies post nasal drip, Denies tinnitus, Denies sinus pain, Denies sinus pressure and Denies sore throat Card Reports no additional complaints Resp Reports as per HPI GI Denies odynophagia Musc Reports back pain (Recurrent) Neuro Denies dizziness and Denies weakness Endo Reports fatigue Aller/Immun Reports as per HPI and Reports seasonal rhinorrhea Physical exam (Primary Care) Vital Signs: Last Vital Signs Temp 96.6 F L 07/18/24 16:15 Pulse 95 07/18/24 16:15 Resp 16 07/18/24 16:15 BP 110/80 07/18/24 16:15 Pulse Ox 99 07/18/24 16:15 Oxygen Delivery Method Room Air 07/18/24 16:15 BMI result Body Mass Index 55.8 Tobacco/Smoking Status: Tobacco use Status Tobacco use date assessed 07/18/24 07/18/24 16:22 Patient Tobacco Use Status Former Tobacco user 07/18/24 16:22 e-Cigarette/Vaping Use Never Used 07/18/24 16:22 PHQ-9: PHQ-9 Score PHQ-9: Total score 19 07/18/24 17:00 Depression Screening Interpretation: Positive (Brittany) Depression Screening Follow-up: Existing condition, In treatment and Community Mental Health Worker F/U Thrive Assessment: Date of Thrive Assessment Date Thrive assessed 07/18/24 07/18/24 16:22 Currently or been in a relationship where the following occur: I choose not to answer Const General: comfortable and no acute distress Nutritional Appearance: obese morbidly obese Orientation/consciousness: patient oriented x3 HENMT Ears: hearing grossly normal bilaterally, external ears normal, TM's normal bilaterally and EAC's normal General nose exam: Normal external nose present and Abnormal mucous membranes and turbinates present boggy and pale Face and sinus: Yes sinuses nontender and Yes face symmetric Mouth: Normal oral and palatal mucosa present, oropharynx normal and moist mucous membranes Neck Neck: Yes full ROM, Yes no lymphadenopathy and Yes supple Resp Auscultation: clear to auscultation bilaterally Cardio Other: S1-S2 present regular rate and rhythm GI Inspection: Yes obesity Palpation (GI): Soft to palpation, nontender, no guarding and no masses Auscultation: normal bowel sounds Skin Rashes: no rashes Neuro General: patient oriented x3, gait normal, moves all extremities and no focal motor deficits Coding Level of Care Code Est Pt Level 3 (18535) Diagnoses Dyslipidemia E78.5 Upper respiratory infection J06.9 History of vitamin D deficiency Z86.39 Additional Codes ELIE-7 Assessment Billing - ELIE-7 Assessment Tool: ELIE-7 Assessment 19802 ([id number]) Assessment & Plan Assessment & Plan (1) Dyslipidemia: Code(s): E78.5 - Hyperlipidemia, unspecified Category: Medical Plan: Fasting lipid panel ordered, reinforced importance of following a healthy diet, stay active, start at least exercising 50 minutes of cardio daily (2) Upper respiratory infection: Code(s): J06.9 - Acute upper respiratory infection, unspecified Plan: Will check for RSV, COVID and flu. Symptomatic treatment discussed with patient, may take kacc-uyv-hcnrtpv DayQuil/NyQuil tablets, drink plenty of water, return to clinic if no improvement of symptoms or any worsening of symptoms especially if accompanied by fever (3) History of vitamin D deficiency: Code(s): Z86.39 - Personal history of other endocrine, nutritional and metabolic disease Category: Medical Plan: Vitamin-D level checked Orders: Orders SARS-CoV2/FLU/RSV Today R09.89 - Other specified symptoms and signs involving the circulatory and respiratory systems Lipid Panel Today E78.5 - Hyperlipidemia, unspecified, Z86.39 - Personal history of other endocrine, nutritional and metabolic disease Vitamin D 25-OH Total Today E78.5 - Hyperlipidemia, unspecified, Z86.39 - Personal history of other endocrine, nutritional and metabolic disease
== END 2024-07-18 16:58 | disposition home or self-care (01) ==
PROVIDERS: PCP Internal Medicine; Visit Provider Internal Medicine
DX: E78.5 Hyperlipidemia, unspecified (principal); J06.9 Acute upper respiratory infection, unspecified; Z86.39 Personal history of other endocrine, nutritional and metabolic disease

== ENCOUNTER 2024-07-18 16:09 | Outpatient (REF) | payer OTHER, SELFPAY | END 2024-07-18 16:10 | disposition home or self-care (01) | LOC: HO.LNP 16:09 | PROVIDERS: PCP Internal Medicine; Visit Provider Internal Medicine | DX: J06.9 Acute upper respiratory infection, unspecified (principal); R09.89 Other specified symptoms and signs involving the circulatory and respiratory systems; E78.5 Hyperlipidemia, unspecified; Z86.39 Personal history of other endocrine, nutritional and metabolic disease | CPT/HCPCS: 0241U; 96127; 99212 ==

== ENCOUNTER 2024-07-18 16:09 | Outpatient (REF) | payer OTHER, SELFPAY ==
[2024-07-19 12:00] LABS: Influenza A PCR NEGATIVE (Negative); Influenza B PCR NEGATIVE (Negative); Resp Syncy Virus RNA Qual PCR NEGATIVE (Negative); SARS COV2 PCR INHOUSE NEGATIVE (Negative)
== END 2024-07-18 16:10 | disposition home or self-care (01) ==
LOC: HO.LNP 16:09
PROVIDERS: Visit Provider Internal Medicine
DX: Z13.89 Encounter for screening for other disorder (principal)
CPT/HCPCS: 0241U

== ENCOUNTER 2024-08-07 15:08 | Outpatient (AMB) | payer OTHER, SELFPAY ==
[2024-08-07 15:19] VITALS: BP 120/78; PULSE 81; O2SAT 98; BMI 57.1
--- NOTE | 2024-08-07 15:19 | A.OFFVIS_ITS ---
Vital Signs 08/07/24 15:19 Height 5 ft 2 in Weight 312 lb 2 oz BMI 57.1 BP 120/78 Blood Pressure Location Lt brachial Position Sitting Pulse 81 Pulse Source Pulse Oximeter Pulse Oximetry (%) 98 Oxygen Delivery Method Room Air Intake Visit Reasons: Follow up Intake Note: Patient presents follow up migraine. patient states having cluster headaches every day for few hours Allergies strawberry Allergy (Unknown, Verified 07/18/24 22:54) Swelling, hives hydrocodone [Vicodin] Adverse Reaction (Unknown, Verified 07/18/24 22:54) vomiting Medication List - Last Reconciled 08/07/24 by ERNESTINE Jiang ascorbic acid (vitamin C) mg PO bupropion HCl XL 300 mg PO DAILY calcium polycarbophil (Fiber Laxative (calcium polycarbophil)) 1,250 mg (2 x 625 mg) PO BID 30 days carboxymethylcellulose sodium 0.5% 0 drps ophthalmic (eye) carisoprodol 350 mg PO BID PRN cetirizine 10 mg PO DAILY PRN cholecalciferol (vitamin D3) 50 mcg PO DAILY cranberry fruit 400 mg PO DAILY dicyclomine 20 mg PO QID PRN 30 days docusate sodium 100 mg PO BID eletriptan take 1 tab at onset of headache; if no relief, may repeat 1 tab after at least 2 hrs; max = 2 tabs/24 hrs PO 30 days famotidine 40 mg PO BEDTIME fluoxetine 0 mg PO hydroxyzine HCl 25 mg PO TID PRN lactobacillus combination no.9 (Adult 50 Plus Probiotic) PO DAILY lidocaine HCl 4% (Aspercreme (lidocaine HCl)) 1 appl topical BID PRN owdzoi-hqupeptr-mdbnvhr 24,000-76,000 -120,000 unit (Creon) 1 cap PO QID lorazepam 1 mg PO DAILY PRN magnesium glycinate 100 mg PO DAILY melatonin mg PO multivitamin 1 tab PO DAILY nabumetone 500 mg PO BID PRN nystatin 1 appl topical BID rizatriptan (Maxalt) take 1 tab at onset of headache; if no relief may repeat 1 tab after at least 2 hrs; max = 3 tabs/24 hr PO simethicone (Gas Relief (simethicone)) 125 mg PO QID PRN tizanidine 4 mg PO BID PRN HPI Comments Details: 39-yr-old female presents for f/u visit of JUNO and headache/migraine. Pt denies any significant interval medical changes. Pt has been compliant w/ CPAP, w/ good reduction is residual AHI. She typically only does not use her CPAP machine, when sick. Print since she was sick at the end of June, and was not able to use it for several days. Previously saw ENT- has enlarged tonsils/adnoids, but was hesitant to have them removed. She continues to have 2-3 migraine attacks per month, which lasts 1-2 days. Describes her migraine- may start at base of neck, temples, throbbing, a/w photophobia, phonophobia, nausea, occasional vomiting, dizziness, activity intolerance, usually right but can be bilateral inner eye twitching, rarely may see halos around lights- can occur w/wo headache. Postdrome- lingering headache. She is generally photophobic. Dizziness is better. Treats with fluids, rest, and her triptan. States Sumatriptan or rizatriptan work- though effect varies. She does have occasional leg cramps- better on Magnesium. Does have IBS-C. Resp supplier: [facility] Compliance Report Usage 07/12/2024 - 08/10/2024 Usage days 25/30 days (83%) >= 4 hours 23 days (77%) < 4 hours 3 days (10%) Usage hours 198 hours 34 minutes Average usage (total days) 6 hours 14 minutes Total used hours (value since last reset - 04/26/2024) 1,085 hours AirSense 10 AutoSet Serial number [id number] Mode AutoSet Min Pressure 5 cmH2O Max Pressure 20 cmH2O EPR Fulltime EPR level 2 Response Standard Therapy Pressure - cmH2O Median: 9.7 95th percentile: 12.7 Maximum: 14.2 Leaks - L/min Median: 0.0 95th percentile: 9.3 Maximum: 29.5 Events per hour AI: 0.5 HI: 0.2 AHI: 0.7 PFSH Medical History History of vitamin D deficiency Migraine Sleeping difficulty Seasonal allergic rhinitis Erythema intertrigo Dyslipidemia Chronic low back pain Cervical cancer screening Fatigue Morbid obesity due to excess calories Choledocholithiasis Bipolar disorder (manic depression) Scheuermann's kyphosis Surgical History History of ERCP Family History Father Acute myocardial infarction History of CVA (cerebrovascular accident) CVD (cardiovascular disease) Hyperlipidemia Substance abuse Mental health disorder Mother Substance abuse Mental health disorder Brother No problems noted. Brother Mental health disorder Sister Substance abuse Social History Housing: Apartment Alcohol intake: current Alcohol intake frequency: does not drink Patient Tobacco Use Status: Former Tobacco user Cigarette Packs Per Day: 1.5 Cigarettes Per Day: 30 Years Smoked: 15 e-Cigarette/Vaping Use: Never Used Second Hand Smoke Exposure: No service: No Current occupational status: disabled Current occupational exposures/hazards: No Cognitive needs: No Hearing needs: No Vision needs: Yes Female Reproductive History Menstrual Age of Menarche: 9 Physical Exam Vital Signs: Last Vital Signs Pulse 81 08/07/24 15:19 BP 120/78 08/07/24 15:19 Pulse Ox 98 08/07/24 15:19 Oxygen Delivery Method Room Air 08/07/24 15:19 BMI result Body Mass Index 57.1 Const General: cooperative and no acute distress Orientation/consciousness: patient oriented x3 HEENT Other: Mallampati garde IV Resp Effort & Inspection: normal respiratory effort and able to speak in complete sentences Neuro General: patient oriented x3 Cranial nerves: Yes CN's II-XII intact bilaterally Cognition (Neuro): normal cognition Psych Appearance: grossly normal Mental Status: mental status grossly normal Speech and movement: Normal speech and movement present Affect: normal affect Attitude: cooperative Assessment & Plan Assessment & Plan (1) JUNO (obstructive sleep apnea): Comment: A moderate degree of sleep apnea. AHI was 24 and oxygen arturo was 67%. Code(s): G47.33 - Obstructive sleep apnea (adult) (pediatric) Category: Medical (2) Migraine without aura: Code(s): G43.009 - Migraine without aura, not intractable, without status migrainosus Category: Medical (3) Vertigo: Code(s): R42 - Dizziness and giddiness Category: Medical Plan For JUNO: Continue APAP 5-20 cmH2O w/ EPR 2, as pt has had good reduction in residual AHI. Routinely clean and change PAP supplies. Information previously shared w/ pt on resources to optimize sleep hygiene, quality. For vertigo- Improved, if worsens will revisit referral to PT for vestibular tx For acute migraine w/o aura- Continue eletriptan p.r.n. for now. PCP recently order lipid panel- if markedly elevated, may need to consider switching to a gepant tx. Complementary migraine interventions shared w/ pt. Previous acute migraine treatment: fioricet- effect varied. For migraine prevention: Information shared on nonpharmacological migraine treatment strategies- such as GreenLight therapy, FL-41 blue light blocking glasses. Start Emgality 120mg/ml auto-injection: Loading dose: 240mg (2 120mg/ml auto-injections) via subcutaneous injection in 2 different sites). Then 30 days after loading dose, start Maintenance dose: 120mg (120mg/ml autoinjector) subcutaneous injection every month. Patient requests injection training once Emgality available. Important considerations: * Emgality will likely require insurance prior authorization prior to receiving it from the pharmacy. * Potential side effects include allergic reaction and injection site reactions. * Emgality injection training educational video is available to view on [employer] * Store Emgality in the refrigerator in it's original packaging in order to protect from light. * Remove Emgality at least 1 hour prior to taking the injection. * Emgality can be left out of the fridge for?up to 7 days at a temperature not above 86?F. If either of these conditions are exceeded, then Emgality must be thrown away. * Once Emgality has been stored out of refrigeration, do not place it back in the refrigerator. * Previous preventive migraine treatments: Amitriptyline- ineffective though used for alternate dx. Topiramate- not tolerated- taste changes. Migraine tx contraindications: Aimovig d/t constipation. Beta-blockers d/t risk for worsening mood. Pt to follow-up in 6 months or sooner prn. Medications: New galcanezumab-gnlm (Emgality Pen) Loading dose: 120 mg subcu injection x2 in alternate sites (total 240 mg). To be followed by maintenance dose of 120 mg subcu q.month. 240 mg (2 mL) subcut ONCE 30 days 2 mL 0RF Coding Level of Care Code Est Pt Level 4 (18499) Diagnoses JUNO (obstructive sleep apnea) G47.33 Migraine without aura G43.009 Vertigo R42
== END 2024-08-08 12:29 | disposition home or self-care (01) ==
PROVIDERS: PCP Internal Medicine; Visit Provider Nurse Practitioner Family
DX: G47.33 Obstructive sleep apnea (adult) (pediatric) (principal); G43.009 Migraine without aura, not intractable, without status migrainosus; R42 Dizziness and giddiness
CPT/HCPCS: 99214

== ENCOUNTER → 2024-08-07 15:08 | Outpatient (BNVA) | payer OTHER, SELFPAY | PROVIDERS: PCP Internal Medicine; Visit Provider Nurse Practitioner Family | DX: G43.009 Migraine without aura, not intractable, without status migrainosus (principal); G47.33 Obstructive sleep apnea (adult) (pediatric); R42 Dizziness and giddiness | CPT/HCPCS: 99212 ==

== ENCOUNTER → 2024-08-23 14:01 | Outpatient (BNVA) | payer OTHER, SELFPAY | PROVIDERS: PCP Internal Medicine; Visit Provider Nurse Practitioner Family ==

== ENCOUNTER 2024-09-26 11:07 | Outpatient (REF) | payer OTHER, SELFPAY ==
[2024-09-26 12:55] LABS: Cholesterol 255 mg/dL (<200); HDL Cholesterol 60 mg/dL (>40); LDL Cholesterol Calculated 169 mg/dL (<100); Triglycerides 131 mg/dL (<150)
[2024-09-26 13:09] LABS: Vitamin D 25-OH Total 50.8 ng/mL (>30)
== END 2024-09-26 11:08 | disposition home or self-care (01) ==
LOC: HO.LAB 11:07
PROVIDERS: PCP Internal Medicine; Visit Provider Internal Medicine
DX: E78.5 Hyperlipidemia, unspecified (principal); Z86.39 Personal history of other endocrine, nutritional and metabolic disease
CPT/HCPCS: 36415; 80061; 82306

== ENCOUNTER 2024-11-09 12:07 | Outpatient (AMB) | payer OTHER, SELFPAY ==
[2024-11-09 12:10] VITALS: BP 122/80; PULSE 79; TEMP 37.2; O2SAT 99
--- NOTE | 2024-11-09 12:10 | AM.OFFWIN_ITS ---
Intake Vital Signs 11/09/24 12:10 Height 5 ft 2 in BP 122/80 Blood Pressure Location Rt brachial Position Sitting Pulse 79 Pulse Source Pulse Oximeter Temp 99.0 F Temp Source Oral Pulse Oximetry (%) 99 Intake Visit Reasons: EP- Lt arm rash Patient Tobacco Use Status: Former Tobacco user Allergies strawberry Allergy (Unknown, Verified 11/09/24 12:11) Swelling, hives hydrocodone [Vicodin] Adverse Reaction (Unknown, Verified 11/09/24 12:11) vomiting Do you need a note to return to daycare/school/sports/work: Yes HPI EP- Lt arm rash HPI Details Patient is a 39-year-old female comes to the walk-in clinic complaining of an intensely itchy rash that started on her left armpit and is now radiating down the left and right forearms. She does have a history of intertrigo. She has tried topical hydrocortisone cream, with no relief. She denies new products or changes in diet or habits. She also denies obvious contact with allergic source. No other associated symptoms. [facility] Medical History History of vitamin D deficiency Migraine Sleeping difficulty Seasonal allergic rhinitis Erythema intertrigo Dyslipidemia Chronic low back pain Cervical cancer screening Fatigue Morbid obesity due to excess calories Choledocholithiasis Bipolar disorder (manic depression) Scheuermann's kyphosis Surgical History History of ERCP Family History Father Acute myocardial infarction History of CVA (cerebrovascular accident) CVD (cardiovascular disease) Hyperlipidemia Substance abuse Mental health disorder Mother Substance abuse Mental health disorder Brother No problems noted. Brother Mental health disorder Sister Substance abuse Social History Housing: Apartment Alcohol intake: current Alcohol intake frequency: does not drink Patient Tobacco Use Status: Former Tobacco user Cigarette Packs Per Day: 1.5 Cigarettes Per Day: 30 Years Smoked: 15 e-Cigarette/Vaping Use: Never Used Second Hand Smoke Exposure: No service: No Current occupational status: disabled Current occupational exposures/hazards: No Cognitive needs: No Hearing needs: No Vision needs: Yes Female Reproductive History Menstrual Age of Menarche: 9 Review of Systems Const All systems reviewed & are unremarkable except as noted in HPI and below Physical Exam Vital Signs: Last Vital Signs Temp 99.0 F 11/09/24 12:10 Pulse 79 11/09/24 12:10 BP 122/80 11/09/24 12:10 Pulse Ox 99 11/09/24 12:10 Skin Other: Patient has erythematous pruritic rash to the left axillary area, and scattered papules throughout bilateral forearms. It is in a contact dermatitis pattern, although a few of the areas almost appear like scabies like burrows. No significant edema or warmth. No bleeding or discharge. No cellulitic features. Assessment & Plan Assessment & Plan (1) Pruritic erythematous rash: Code(s): L29.89 - Other pruritus Plan: Patient is a 39-year-old female with history of intertrigo, who presents with a new lesions that started on her left axillary area and is progressing down her forearms bilaterally. She denies any known source, change in products, or lifestyle changes. She does report that she is very stressed about this. It does not look like intertrigo to me, although the left axilla is an intertriginous area. It appears to be more contact dermatitis, although a few areas are scabies like in pattern. I told her that I am not 100% sure of the diagnosis, and that I would recommend that she do permethrin cream tonight to at least rule out scabies infestation. If this persists, I wrote her for triamcinolone ointment. If symptoms persist or worsen, especially if they radiate to other extremities, she might require a steroid taper at that point. We discussed referral to derm if symptoms persist. She should follow up as needed sooner otherwise, and go to the emergency department with any worrisome symptoms. Medications: New triamcinolone acetonide 0.1% 1 appl topical BID 15 grams 0RF 10 days permethrin 5% apply second treatment 14 days after first treatment if live lice remain 1 appl topical Q14D 60 grams 0RF 2 doses Coding Level of Care Code Est Pt Level 4 (09327) Diagnoses Pruritic erythematous rash L29.89
== END 2024-11-09 13:02 | disposition home or self-care (01) ==
LOC: HO.HMCWIC 12:07
PROVIDERS: PCP Internal Medicine; Visit Provider Physician Assistant Medical
DX: L29.89 Other pruritus (principal)

== ENCOUNTER → 2024-11-09 12:07 | Outpatient (BNVA) | payer OTHER, SELFPAY | PROVIDERS: PCP Internal Medicine; Visit Provider Physician Assistant Medical | DX: Z13.89 Encounter for screening for other disorder (principal) ==

== ENCOUNTER 2024-12-06 14:56 | Outpatient (AMB) | payer OTHER, SELFPAY ==
--- NOTE | 2024-12-06 14:59 | MHC.OFFVIS ---
Vital Signs 12/06/24 15:00 Height 5 ft 2 in Weight 308 lb BMI 56.3 BP 130/68 Blood Pressure Location Rt brachial Position Sitting Pulse 72 Pulse Source Pulse Oximeter Pulse Oximetry (%) 98 Oxygen Delivery Method Room Air Intake Visit Reasons: Follow up 6 months Intake Note: Est pt for mgmt of IBS + AUGUSTINE CC; C.O. GERD persistence / exacerbation as well as GI upset and gas/bloating. Pt states that they are also having difficulty with obtaining the Rx order for their colace per the pharmacy and their insurance. [employer] Required: No Accompanied by: Spouse Allergies strawberry Allergy (Unknown, Verified 12/06/24 15:02) Swelling, hives hydrocodone (Vicodin) Adverse Reaction (Unknown, Verified 12/06/24 15:02) vomiting HPI HPI Follow up 6 months: Details: Assessment & Plan (1) Irritable bowel syndrome with both constipation and diarrhea: Code(s): K58.2 - Mixed irritable bowel syndrome Category: Medical (2) GERD (gastroesophageal reflux disease): Code(s): K21.9 - Gastro-esophageal reflux disease without esophagitis Category: Medical (3) AUGUSTINE (nonalcoholic steatohepatitis): Comment: BASELINE Laboratory Tests 06/05/24 16:06 WBC 6.9 Hgb 14.0 Hct 43.2 Plt Count 300 Estimated GFR > 60 Total Bilirubin 0.5 AST 21 ALT 25 Alkaline Phosphatase 53 11/14/19 15:20 Anti-Mitochondrial Ab Negative Anti-Smooth Muscle Ab <20 Given this was an incidental finding on imaging and the normal transaminases serology is not warranted. CURRENT LABS ULTRASOUND OF THE ABDOMEN 10/30/23 FINDINGS: PANCREAS: The pancreas is obscured by bowel gas. ABDOMINAL AORTA: The abdominal aorta is not well seen due to bowel gas. INFERIOR VENA CAVA: The inferior vena cava is not well seen due to bowel gas. LIVER: The liver is normal in size. The liver contour is normal. There is diffuse increased liver parenchymal echogenicity, consistent with hepatic steatosis. No focal hepatic lesion. There is no intrahepatic biliary duct dilatation seen. GALLBLADDER: Surgically absent. COMMON BILE DUCT: Normal in caliber measuring 0.2 cm in diameter. RIGHT KIDNEY: Normal. No hydronephrosis. No renal calculi or focal parenchymal lesions. The kidney measures 10.1 cm in maximum dimension. LEFT KIDNEY: Normal. No hydronephrosis. No renal calculi or focal parenchymal lesions. The kidney measures 9.2 cm in maximum dimension. SPLEEN: Normal. The spleen measures 8.7 cm in maximum dimension. FREE FLUID: None. US/US abdomen complete IMPRESSION: 1. Hepatic steatosis. 2. Prior cholecystectomy. 3. The pancreas, abdominal aorta and inferior vena cava are not well seen due to bowel gas. Code(s): K75.81 - Nonalcoholic steatohepatitis (AUGUSTINE) Category: Medical Plan She continues on her famotidine, bentyl, fiber, colace, creon and now she wants to use OTC chewable simethicone. She is having lower ext edema that is being worked up. She is having trouble losing weight and asks if she needs a referral to [facility], but I don't know she will have to call the [facility] ctr and discuss this with her PCP. She is taking an OTC liver support containing milk thistle and marshmallow - this is ok. Liver fxn look good. ROV 6 mos. Medications: New simethicone (Gas Relief (simethicone)) 125 mg PO QID PRN 120 tabs 6RF abdominal distention Refilled famotidine 40 mg PO BEDTIME 28 tabs 3RF K21.9 - Gastro-esophageal reflux disease without esophagitis shlzqp-wjeubmhz-xfrysvz 24,000-76,000 -120,000 unit (Creon) 1 cap PO QID 112 caps 3RF K58.9 - Irritable bowel syndrome, unspecified calcium polycarbophil (Fiber Laxative (calcium polycarbophil)) 1,250 mg (2 x 625 mg) PO BID 120 tabs 6RF 30 days K58.2 - Mixed irritable bowel syndrome dicyclomine 20 mg PO QID PRN 120 tabs 6RF constipation 30 days K58.2 - Mixed irritable bowel syndrome docusate sodium 100 mg PO BID 56 caps 0RF K59.04 - Chronic idiopathic constipation TODAYS VISIT She continues on her famotidine, bentyl, fiber, colace, creon and now she wants to use OTC chewable simethicone. She would like to go back to the 20mg bid famotidine, I question if this change was insurance driven or availability driven. WIll Try, also give omeprazole 20mg qd to try. She has been having more cramping ? if she is out of dicyclomine, re sending. ROV 8 weeks. [facility] Medical History History of vitamin D deficiency Migraine Sleeping difficulty Seasonal allergic rhinitis Erythema intertrigo Dyslipidemia Chronic low back pain Cervical cancer screening Fatigue Morbid obesity due to excess calories Choledocholithiasis Bipolar disorder (manic depression) Scheuermann's kyphosis Surgical History History of ERCP Family History Father Acute myocardial infarction History of CVA (cerebrovascular accident) CVD (cardiovascular disease) Hyperlipidemia Substance abuse Mental health disorder Mother Substance abuse Mental health disorder Brother No problems noted. Brother Mental health disorder Sister Substance abuse Social History Housing: Apartment Alcohol intake: current Alcohol intake frequency: does not drink Patient Tobacco Use Status: Former Tobacco user Cigarette Packs Per Day: 1.5 Cigarettes Per Day: 30 Years Smoked: 15 e-Cigarette/Vaping Use: Never Used Second Hand Smoke Exposure: No service: No Current occupational status: disabled Current occupational exposures/hazards: No Cognitive needs: No Hearing needs: No Vision needs: Yes Female Reproductive History Menstrual Age of Menarche: 9 Review of Systems Const Denies fatigue, Denies fever(s), Denies night sweats, Denies poor appetite and Denies weight loss ENT Reports Normal hearing present, Denies dental pain, Denies dysphagia, Denies hearing loss, Denies mouth pain, Denies odynophagia, Denies throat swelling, Denies tongue swelling and Reports other (Dentition adequate) Card Reports no additional complaints Resp Reports no additional complaints GI Details: Denies abdominal pain, Denies melena, Denies bloating, Denies hematochezia, Denies constipation, Reports GI cramping, Denies dysphagia, Denies excessive flatus, Denies early satiety, Reports heartburn, Denies diarrhea, Denies nausea, Denies odynophagia, Denies vomiting and Denies hematemesis Skin/Breast Denies pruritus, Denies lesions, Denies rash and Denies jaundice Neuro Reports Normal hearing present and Denies Abnormal speech present Endo Denies fatigue Aller/Immun Denies throat swelling and Denies tongue swelling Physical Exam Vital Signs: Last Vital Signs Pulse 72 12/06/24 15:00 BP 130/68 12/06/24 15:00 Pulse Ox 98 12/06/24 15:00 Oxygen Delivery Method Room Air 12/06/24 15:00 BMI result Body Mass Index 56.3 Const General: cooperative, no acute distress, well developed and well groomed Nutritional Appearance: well nourished and obese morbidly obese Orientation/consciousness: oriented to person, oriented to place and oriented to time Limitations: No language barrier HEENT Head: Yes normocephalic and Yes atraumatic Eyes General: appearance normal, both eyes and all related structures Pupils: Equal, round and reactive pupils present Neck Neck: Yes normal visual inspection and Yes no lymphadenopathy Thyroid: Thyroid normal Resp Effort & Inspection: normal respiratory effort and able to speak in complete sentences Auscultation: clear to auscultation bilaterally Cardio Rate: regular rate Rhythm: regular rhythm Heart sounds: Normal, physiologic split S2 sound present Peripheral pulses: radial pulses present and posterior tibial pulses present GI Inspection: No distended, Yes Abdominal panniculus present and Yes obesity Palpation (GI): Soft to palpation, nontender, no guarding, not rigid and No hepatosplenomegaly present Percussion: Yes normal to percussion Auscultation: normal bowel sounds Rectal Exam - Female: deferred Skin General skin exam: no rashes or lesions noted, turgor normal, skin not dry, no jaundice, No spider nevi and no striae Rashes: no rashes Nails: normal Neuro General: oriented to person, oriented to place and oriented to time Cranial nerves: Yes Equal, round and reactive pupils present and Yes Normal hearing present Speech: No Abnormal speech present Extrem General: Yes normal to inspection, No clubbing, No cyanosis and No edema Psych Appearance: grossly normal and well kempt Mental Status: mental status grossly normal Speech and movement: Normal speech and movement present Affect: normal affect Attitude: cooperative Thought process: Normal thought process present and not confabulating Thought content: Normal thought content present Insight: Fair insight present (Psych) Judgement: Fair judgement present (Psych) Assessment & Plan Assessment & Plan (1) GERD (gastroesophageal reflux disease): Code(s): K21.9 - Gastro-esophageal reflux disease without esophagitis Category: Medical (2) Irritable bowel syndrome with both constipation and diarrhea: Code(s): K58.2 - Mixed irritable bowel syndrome Category: Medical Plan She continues on her famotidine, bentyl, fiber, colace, creon and now she wants to use OTC chewable simethicone. She would like to go back to the 20mg bid famotidine, I question if this change was insurance driven or availability driven. WIll Try, also give omeprazole 20mg qd to try. She has been having more cramping ? if she is out of dicyclomine, re sending. ROV 8 weeks. Medications: New omeprazole 20 mg PO DAILY 30 caps 6RF 30 days K21.9 - Gastro-esophageal reflux disease without esophagitis famotidine (Pepcid) 20 mg PO BID 60 tabs 6RF Refilled dicyclomine 20 mg PO QID PRN 120 tabs 6RF constipation 30 days K58.2 - Mixed irritable bowel syndrome simethicone (Gas Relief (simethicone)) 125 mg PO QID PRN 120 tabs 6RF abdominal distention Discontinued famotidine Discontinued Reason: Doctor's Order 40 mg PO BEDTIME 28 tabs 1RF K21.9 - Gastro-esophageal reflux disease without esophagitis Coding Level of Care Code Est Pt Level 3 (13900) Diagnoses GERD (gastroesophageal reflux disease) K21.9 Irritable bowel syndrome with both constipation and diarrhea K58.2
[2024-12-06 15:00] VITALS: BP 130/68; PULSE 72; O2SAT 98; BMI 56.3
== END 2024-12-06 15:32 | disposition home or self-care (01) ==
LOC: HO.HGI 14:57
PROVIDERS: PCP Internal Medicine; Visit Provider Nurse Practitioner
DX: K21.9 Gastro-esophageal reflux disease without esophagitis (principal); K58.2 Mixed irritable bowel syndrome
CPT/HCPCS: 99213

== ENCOUNTER → 2024-12-06 14:56 | Outpatient (BNVA) | payer OTHER, SELFPAY | PROVIDERS: PCP Internal Medicine; Visit Provider Nurse Practitioner | DX: K21.9 Gastro-esophageal reflux disease without esophagitis (principal); K58.2 Mixed irritable bowel syndrome | CPT/HCPCS: 99212 ==

== ENCOUNTER 2025-02-04 12:48 | Outpatient (AMB) | payer OTHER, SELFPAY ==
[2025-02-04 12:50] VITALS: BP 110/78; PULSE 73; RESP 16; TEMP 36.9; O2SAT 99; BMI 56.9
--- NOTE | 2025-02-04 12:50 | MHC.PC.OV ---
Vital Signs 02/04/25 12:50 Height 5 ft 2 in Weight 311 lb BMI 56.9 BP 110/78 Blood Pressure Location Rt radial Position Sitting Respiration 16 Pulse 73 Pulse Source Pulse Oximeter Temp 98.5 F Temp Source Oral Pulse Oximetry (%) 99 Oxygen Delivery Method Room Air Intake Visit Reasons: Annual PE- RESCHEDULE (2) Intake Note: Pt is here today for her PE: last papsmear 05/27/21: Never had a mammogram Allergies strawberry Allergy (Unknown, Verified 02/04/25 13:06) Swelling, hives hydrocodone (Vicodin) Adverse Reaction (Unknown, Verified 02/04/25 13:06) vomiting Medication List - Last Reconciled 02/04/25 by Shanda Gonzalez MD ascorbic acid (vitamin C) mg PO bupropion HCl XL 300 mg PO DAILY calcium polycarbophil (Fiber Laxative (calcium polycarbophil)) 1,250 mg (2 x 625 mg) PO BID 30 days carboxymethylcellulose sodium 0.5% 0 drps ophthalmic (eye) carisoprodol 350 mg PO BID PRN cetirizine 10 mg PO DAILY PRN cholecalciferol (vitamin D3) 50 mcg PO DAILY cranberry fruit 400 mg PO DAILY dicyclomine 20 mg PO QID PRN 30 days docusate sodium 100 mg PO BID famotidine (Pepcid) 20 mg PO BID fluoxetine 0 mg PO galcanezumab-gnlm (Emgality Pen) 120 mg subcut Q30D 30 days hydroxyzine HCl 25 mg PO TID PRN lactobacillus combination no.9 (Adult 50 Plus Probiotic) PO DAILY kgkpsu-czluqroj-uftpqah 24,000-76,000 -120,000 unit (Creon) 1 cap PO QID lorazepam 1 mg PO DAILY PRN magnesium glycinate 100 mg PO DAILY melatonin mg PO multivitamin 1 tab PO DAILY nabumetone 500 mg PO BID PRN nystatin 1 appl topical BID omeprazole 20 mg PO DAILY 30 days rizatriptan (Maxalt) take 1 tab at onset of headache; if no relief may repeat 1 tab after at least 2 hrs; max = 3 tabs/24 hr PO simethicone (Gas Relief (simethicone)) 125 mg PO QID PRN Tobacco use date assessed: 02/04/25 Dental Screening Dental Screen Date: 02/04/25 Did you have a dental visit in the last 12 months?: Yes Did you have a dental problem in the last 6 months where you did not have access to dental care?: No Was dental information given to patient?: Patient has dentist HPI Annual PE- RESCHEDULE (2) HPI Details - The patient is a 39-year-old female presenting for her routine physical examination and management of chronic conditions. - Allergic rhinitis: Taking cetirizine 10 mg daily - Irritable bowel syndrome: The patient take fiber supplememts , probiotics , and dicyclomine as needed , which has been helping . - Migraine: The patient is on Emgality for migraine prevention, which has reduced the frequency of migraines but not completely eliminated headaches. - Insomnia: The patient uses melatonin and magnesium for sleep, which provides some relief depending on her stress levels. - Gastroesophageal reflux disease: The patient takes omeprazole and simethicone as needed , ff'd by GI clinic , who also has her taking Creon due to hx of cholelithiasis s/p cholecystectomy - Obstructive sleep apnea: compliant with her CPAP - Peripheral edema: The patient reports swelling in her feet, worse in warm weeather , uses compression stockings. - Hypertension: The patient's blood pressure is within normal limits , - Hyperlipidemia: The patient's cholesterol was previously high, advised adherence to healthy eating habits , but unable to do any meaningful exercise due to her chronic back pain - Vitamin D deficiency: The patient's vitamin D levels were normal, but she is advised to continue supplementation. - Has bipolar disorder , currently controlled with Bupropion , Fluoxetine and hydroxyzine , taken as needed for anxiety attacks , followed by psychiatry ,GWENDOLYN SMITH? - [facility] [place] [facility] [place] done [facility] [place] [facility] , due again in 2025. [facility] Medical History (Updated 02/15/25 @ 03:22 by Shanda Gonzalez MD) Swelling of lower extremity Swelling of lower leg History of vitamin D deficiency Migraine Sleeping difficulty Seasonal allergic rhinitis Erythema intertrigo Dyslipidemia Chronic low back pain Cervical cancer screening Fatigue Morbid obesity due to excess calories Choledocholithiasis Bipolar disorder (manic depression) Scheuermann's kyphosis Surgical History History of ERCP Family History Father Acute myocardial infarction History of CVA (cerebrovascular accident) CVD (cardiovascular disease) Hyperlipidemia Substance abuse Mental health disorder Mother Substance abuse Mental health disorder Brother No problems noted. Brother Mental health disorder Sister Substance abuse Social History Housing: Apartment Alcohol intake: current Alcohol intake frequency: does not drink Patient Tobacco Use Status: Former Tobacco user Cigarette Packs Per Day: 1.5 Cigarettes Per Day: 30 Years Smoked: 15 e-Cigarette/Vaping Use: Never Used Second Hand Smoke Exposure: No service: No Current occupational status: disabled Current occupational exposures/hazards: No Cognitive needs: No Hearing needs: No Vision needs: Yes Female Reproductive History Menstrual Age of Menarche: 9 Questionnaire Thrive Questionnaire Date Thrive assessed: 07/18/24 I am a: Patient What is your living situation today?: I have a steady place to live Within the past 12 months, did the food you bought not last and you didn't have the money to get more?: Often true Within the past 12 months, did you worry whether your food would run out before you got money to buy more?: Sometimes True Do you have trouble paying for medicines?: Yes Do you have trouble getting transportation to medical appointments?: I choose not to answer this question Do you have trouble paying your heating and electricity bill?: I choose not to answer this question Do you have trouble taking care of your child, family member or friend?: I choose not to answer this question Do you have trouble with day-to-day activities such as bathing, preparing meals, shopping, managing finances, etc.?: Yes Are you currently unemployed and looking for a job?: No Are you interested in more education?: I choose not to answer this question Please select the resources that you would like help with: None Currently or been in a relationship where the following occur: I choose not to answer THRIVE Score: 2 AUDIT C Alcohol Use Questionnaire (AUDIT-C) 1. How often do you have a drink containing alcohol?: Never Total Score: 0 Score Reviewed/Action Taken: Yes ELIE-7 AMB Questionnaire ELIE-7 Date ELIE - 7 assessed: 07/18/24 Source: Developed by Drs. Boo Zavala, Lexus Saenz, Joseph Walters and colleagues, with an educational tramaine from [employer]. Review of Systems Const Denies fatigue, Denies fever(s), Denies night sweats, Denies poor appetite and Denies weight loss Eyes Reports no additional complaints ENT Reports Normal hearing present, Denies dental pain, Denies dysphagia, Denies hearing loss, Denies mouth pain, Denies odynophagia, Denies throat swelling, Denies tongue swelling and Reports other (Dentition adequate) Card Reports no additional complaints Resp Reports no additional complaints GI Details: Denies abdominal pain, Denies melena, Denies bloating, Denies hematochezia, Denies constipation, Reports GI cramping, Denies dysphagia, Denies excessive flatus, Denies early satiety, Reports heartburn, Denies diarrhea, Denies nausea, Denies odynophagia, Denies vomiting and Denies hematemesis Reports no additional complaints Musc Reports back pain, Reports arthralgias and Reports stiffness Skin/Breast Denies pruritus, Denies lesions, Denies rash and Denies jaundice Neuro Reports Normal hearing present and Denies Abnormal speech present Psych Reports no additional complaints Endo Denies fatigue Kirk/Lymph Reports no additional complaints Aller/Immun Denies throat swelling and Denies tongue swelling Physical exam (Primary Care) Vital Signs: Last Vital Signs Temp 98.5 F 02/04/25 12:50 Pulse 73 02/04/25 12:50 Resp 16 02/04/25 12:50 BP 110/78 02/04/25 12:50 Pulse Ox 99 02/04/25 12:50 Oxygen Delivery Method Room Air 02/04/25 12:50 BMI result Body Mass Index 56.9 Tobacco/Smoking Status: Tobacco use Status Tobacco use date assessed 02/04/25 02/04/25 12:56 Patient Tobacco Use Status Former Tobacco user 02/04/25 12:51 e-Cigarette/Vaping Use Never Used 02/04/25 12:51 Thrive Assessment: Date of Thrive Assessment Date Thrive assessed 07/18/24 02/04/25 12:51 Currently or been in a relationship where the following occur: I choose not to answer Const General: comfortable and no acute distress Nutritional Appearance: obese morbidly obese Orientation/consciousness: patient oriented x3 HENMT Ears: hearing grossly normal bilaterally, external ears normal, TM's normal bilaterally and EAC's normal General nose exam: Normal external nose present Face and sinus: Yes face symmetric Mouth: Normal oral and palatal mucosa present and moist mucous membranes Eyes General: appearance normal, both eyes and all related structures Neck Neck: Yes full ROM, Yes no lymphadenopathy and Yes supple Chest Breast/axilla palpation: normal palpation of the breasts Resp Auscultation: clear to auscultation bilaterally Cardio Other: S1-S2 present regular rate and rhythm GI Inspection: Yes obesity Palpation (GI): Soft to palpation, nontender, no guarding and no masses Auscultation: normal bowel sounds Back/Spine/Pelvis Other: +kyphosis Skin Rashes: no rashes Neuro General: patient oriented x3, gait normal, moves all extremities and no focal motor deficits Cranial nerves: Yes Normal hearing present Speech: No Abnormal speech present Extrem General: Yes full ROM, Yes capillary refill normal, Yes no clubbing, cyanosis or edema and Yes normal gait Psych Appearance: grossly normal and well kempt Mental Status: mental status grossly normal Speech and movement: Normal speech and movement present Affect: normal affect Coding Level of Care Code Est Pt Prev Care 40-64y(67322) Diagnoses Annual visit for general adult medical examination with abnormal findings Z00.01 Screening for malignant neoplasm of cervix Z12.4 Scheuermann's kyphosis M42.00 Bipolar disorder (manic depression) F31.9 Morbid obesity due to excess calories E66.01 GERD (gastroesophageal reflux disease) K21.9 Irritable bowel syndrome with both constipation and diarrhea K58.2 Dyslipidemia E78.5 Seasonal allergic rhinitis J30.2 JUNO (obstructive sleep apnea) G47.33 History of vitamin D deficiency Z86.39 Chronic low back pain M54.5; G89.29 Swelling of lower extremity M79.89 Assessment & Plan Assessment & Plan (1) Annual visit for general adult medical examination with abnormal findings: Code(s): Z00.01 - Encounter for general adult medical examination with abnormal findings (2) Screening for malignant neoplasm of cervix: Code(s): Z12.4 - Encounter for screening for malignant neoplasm of cervix (3) Scheuermann's kyphosis: Code(s): 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, site unspecified Category: Medical (4) Bipolar disorder (manic depression): Code(s): F31.9 - Bipolar disorder, unspecified Category: Medical (5) Morbid obesity due to excess calories: Code(s): E66.01 - Morbid (severe) obesity due to excess calories Category: Medical (6) GERD (gastroesophageal reflux disease): Code(s): K21.9 - Gastro-esophageal reflux disease without esophagitis Category: Medical (7) Irritable bowel syndrome with both constipation and diarrhea: Code(s): K58.2 - Mixed irritable bowel syndrome Category: Medical (8) Dyslipidemia: Code(s): E78.5 - Hyperlipidemia, unspecified Category: Medical (9) Seasonal allergic rhinitis: Code(s): J30.2 - Other seasonal allergic rhinitis Category: Medical (10) JUNO (obstructive sleep apnea): Comment: A moderate degree of sleep apnea. AHI was 24 and oxygen arturo was 67%. Code(s): G47.33 - Obstructive sleep apnea (adult) (pediatric) Category: Medical (11) History of vitamin D deficiency: Code(s): Z86.39 - Personal history of other endocrine, nutritional and metabolic disease Category: Medical (12) Chronic low back pain: Code(s): M54.5 - Low back pain; G89.29 - Other chronic pain Category: Medical (13) Swelling of lower extremity: Code(s): M79.89 - Other specified soft tissue disorders Category: Medical Plan: Likely due to weight, patient however would like a referral to see a vascular surgeon for further evaluation, no improvement with wearing compression socks Plan The patient will continue using her current medications for allergic rhinitis, irritable bowel syndrome, migraines, and insomnia, adjusting as needed based on symptom severity. For gastroesophageal reflux disease, the patient is advised to continue omeprazole and take nsbumetone as needed for pain . Advise compliance with CPAP therapy for treatment of obstructive sleep apnea and ensure regular cleaning of the device. Peripheral edema management includes the use of compression stockings, and the patient is encouraged to monitor for any worsening of symptoms. Hypertension and hyperlipidemia require lifestyle modifications, and the patient is advised to recheck cholesterol levels and start medication if necessary. The patient was advised to continue vitamin D supplementation Preventative care includes scheduling a mammogram, Pap smear, and planning for a colonoscopy at age 44. [place] [facility] [place] [place] cancer screening and pelvic exam. Prescription also written for walker with wheels, to use on prolonged ambulation. Referral to vascular surgery done for evaluation Patient was informed and verbally consented to the use of an ambient scribe for clinic note documentation during this visit. Orders: Orders Aspartate Amino Transferase 02/04/25 Z86.39 - Personal history of other endocrine, nutritional and metabolic disease, E66.01 - Morbid (severe) obesity due to excess calories, E78.5 - Hyperlipidemia, unspecified, F31.9 - Bipolar disorder, unspecified, J30.2 - Other seasonal allergic rhinitis, K21.9 - Gastro-esophageal reflux disease without esophagitis, K58.2 - Mixed irritable bowel syndrome, G47.33 - Obstructive sleep apnea (adult) (pediatric) Lipid Panel 02/04/25 Z86.39 - Personal history of other endocrine, nutritional and metabolic disease, E66.01 - Morbid (severe) obesity due to excess calories, E78.5 - Hyperlipidemia, unspecified, F31.9 - Bipolar disorder, unspecified, J30.2 - Other seasonal allergic rhinitis, K21.9 - Gastro-esophageal reflux disease without esophagitis, K58.2 - Mixed irritable bowel syndrome, G47.33 - Obstructive sleep apnea (adult) (pediatric) Alanine Aminotransferase 02/04/25 Z86.39 - Personal history of other endocrine, nutritional and metabolic disease, E66.01 - Morbid (severe) obesity due to excess calories, E78.5 - Hyperlipidemia, unspecified, F31.9 - Bipolar disorder, unspecified, J30.2 - Other seasonal allergic rhinitis, K21.9 - Gastro-esophageal reflux disease without esophagitis, K58.2 - Mixed irritable bowel syndrome, G47.33 - Obstructive sleep apnea (adult) (pediatric) Basic Metabolic Panel Fasting 02/04/25 Z86.39 - Personal history of other endocrine, nutritional and metabolic disease, E66.01 - Morbid (severe) obesity due to excess calories, E78.5 - Hyperlipidemia, unspecified, F31.9 - Bipolar disorder, unspecified, J30.2 - Other seasonal allergic rhinitis, K21.9 - Gastro-esophageal reflux disease without esophagitis, K58.2 - Mixed irritable bowel syndrome, G47.33 - Obstructive sleep apnea (adult) (pediatric) Vitamin D 25-OH Total 02/04/25 Z86.39 - Personal history of other endocrine, nutritional and metabolic disease, E66.01 - Morbid (severe) obesity due to excess calories, E78.5 - Hyperlipidemia, unspecified, F31.9 - Bipolar disorder, unspecified, J30.2 - Other seasonal allergic rhinitis, K21.9 - Gastro-esophageal reflux disease without esophagitis, K58.2 - Mixed irritable bowel syndrome, G47.33 - Obstructive sleep apnea (adult) (pediatric) Referrals [employer] Referral Z12.4 - Encounter for screening for malignant neoplasm of cervix Vascular Surgery Referral M79.89 - Other specified soft tissue disorders Medications: New walker (Ultra-Light Rollator misc) As directed, with seat 1 ea 0RF Difficulty ambulating 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
== END 2025-02-04 14:49 | disposition home or self-care (01) ==
LOC: HO.HMCC 12:49
PROVIDERS: PCP Internal Medicine; Visit Provider Internal Medicine
DX: Z00.00 Encounter for general adult medical examination without abnormal findings (principal); F31.9 Bipolar disorder, unspecified; E66.01 Morbid (severe) obesity due to excess calories; Z68.43 Body mass index [BMI] 50.0-59.9, adult; M42.00 Juvenile osteochondrosis of spine, site unspecified; K21.9 Gastro-esophageal reflux disease without esophagitis; K58.2 Mixed irritable bowel syndrome; E78.5 Hyperlipidemia, unspecified; J30.2 Other seasonal allergic rhinitis; G47.33 Obstructive sleep apnea (adult) (pediatric); Z86.39 Personal history of other endocrine, nutritional and metabolic disease; M54.50 Low back pain, unspecified

== ENCOUNTER → 2025-02-04 12:48 | Outpatient (BNVA) | payer OTHER, SELFPAY | PROVIDERS: PCP Internal Medicine; Visit Provider Internal Medicine | DX: Z00.01 Encounter for general adult medical examination with abnormal findings (principal); K58.9 Irritable bowel syndrome, unspecified; G43.909 Migraine, unspecified, not intractable, without status migrainosus; K21.9 Gastro-esophageal reflux disease without esophagitis; G47.33 Obstructive sleep apnea (adult) (pediatric); R60.0 Localized edema; I10 Essential (primary) hypertension; E78.5 Hyperlipidemia, unspecified; E55.9 Vitamin D deficiency, unspecified; F31.9 Bipolar disorder, unspecified; M24.00 Loose body in unspecified joint; E66.01 Morbid (severe) obesity due to excess calories; K58.2 Mixed irritable bowel syndrome; J30.2 Other seasonal allergic rhinitis; M54.50 Low back pain, unspecified; G89.29 Other chronic pain; M79.89 Other specified soft tissue disorders; Z86.39 Personal history of other endocrine, nutritional and metabolic disease; Z99.89 Dependence on other enabling machines and devices | CPT/HCPCS: 99396 ==

== ENCOUNTER 2025-03-11 13:37 | Outpatient (AMB) | payer OTHER, SELFPAY ==
[2025-03-11 13:46] VITALS: BP 114/78; PULSE 71; O2SAT 97; BMI 56.9
--- NOTE | 2025-03-11 13:46 | A.OFFVIS_ITS ---
Vital Signs 03/11/25 13:46 Height 5 ft 2 in Weight 311 lb BMI 56.9 BP 114/78 Blood Pressure Location Rt brachial Position Sitting Pulse 71 Pulse Source Pulse Oximeter Pulse Oximetry (%) 97 Oxygen Delivery Method Room Air Intake Visit Reasons: follow up DUKES/CPAP Intake Note: Patient presents follow up JUNO/Migraine. Compliance in chart(90/90days, >=4hrs- 92%, Average Usage-7hr 1min, Med Pressure-9.0, Med Leaks-1.3, AHI-0.8). Headaches on/off mostly cluster headaches(migraines about 2 per month) taking Emgality but still gets migraines. Have not gotten supplies since October. Allergies strawberry Allergy (Unknown, Verified 03/11/25 13:48) Swelling, hives hydrocodone (Vicodin) Adverse Reaction (Unknown, Verified 03/11/25 13:48) vomiting Medication List - Last Reconciled 03/11/25 by ERNESTINE Jiang ascorbic acid (vitamin C) mg PO bupropion HCl XL 300 mg PO DAILY calcium polycarbophil (Fiber Laxative (calcium polycarbophil)) 1,250 mg (2 x 625 mg) PO BID 30 days carboxymethylcellulose sodium 0.5% 0 drps ophthalmic (eye) carisoprodol 350 mg PO BID PRN cetirizine 10 mg PO DAILY PRN cholecalciferol (vitamin D3) 50 mcg PO DAILY coenzyme Q10 400 mg PO DAILY 90 days cranberry fruit 400 mg PO DAILY dicyclomine 20 mg PO QID PRN 30 days docusate sodium 100 mg PO BID famotidine (Pepcid) 20 mg PO BID fluoxetine 0 mg PO galcanezumab-gnlm (Emgality Pen) 120 mg subcut Q30D 30 days hydroxyzine HCl 25 mg PO TID PRN lactobacillus combination no.9 (Adult 50 Plus Probiotic) PO DAILY [Lift chair Use As directed] mthdpy-ynbatspf-yoxqnrf 24,000-76,000 -120,000 unit (Creon) 1 cap PO QID lorazepam 1 mg PO DAILY PRN magnesium glycinate 400 mg (4 x 100 mg) PO BEDTIME 30 days melatonin mg PO [Mobility scooter Use As directed] multivitamin 1 tab PO DAILY nabumetone 500 mg PO BID PRN nystatin 1 appl topical BID omeprazole 20 mg PO DAILY 30 days riboflavin (vitamin B2) 400 mg PO DAILY 90 days rizatriptan 5 - 10 mg (0.5 - 1 x 10 mg) PO Q2H PRN 21 days [Rollator walker with seat Use As directed] simethicone (Gas Relief (simethicone)) 125 mg PO QID PRN walker (Ultra-Light Rollator misc) As directed, with seat HPI Comments Details: 39-yr-old female presents for f/u visit of JUNO and headache/migraine. Pt denies any significant interval medical changes. Pt has been compliant w/ CPAP, w/ good reduction is residual AHI. However, she continues to experience fragmented sleep and daytime sleepiness. She states she has been taking her bupropion at bedtime. Previously saw ENT- has enlarged tonsils/adnoids, but was hesitant to have them removed. She has not heard from ENT referral yet. She is noticing increased headaches 2-3 x's per week lasting about 1 day, a/w photophobia, intermittent nausea, irritability. She continues to have 1-2 migraine attacks per month, which lasts 1-2 days. Describes her migraine- may start at base of neck, temples, throbbing, a/w photophobia, phonophobia, nausea, occasional vomiting, dizziness, activity intolerance, usually right but can be bilateral inner eye twitching, rarely may see halos around lights- can occur w/wo headache. Postdrome- lingering headache. She is generally photophobic. Treats migraine with fluids, rest, and her triptan. States she thinks she currently has prn rizatriptan. She wonders if there could be a secondary reasoning for her ongoing migraine in headache attacks She does have occasional leg cramps- better on Magnesium. Does have IBS-C. Resp supplier: [facility] Compliance Report Usage 12/03/2024-03/02/2025 Overall usage days 100% Average usage (total days) 7 hours 1 minute AirSense 10 AutoSet Serial number [id number] Mode AutoSet Min Pressure 5-20 cmH2O EPR 2 Maximum pressure: 13.6 cm H2O Leaks - L/min * Median: 1.3 * Maximum: 37.6 Residual events per hour: AHI 0.8 per hour [facility] Medical History Swelling of lower extremity Swelling of lower leg History of vitamin D deficiency Migraine Sleeping difficulty Seasonal allergic rhinitis Erythema intertrigo Dyslipidemia Chronic low back pain Cervical cancer screening Fatigue Morbid obesity due to excess calories Choledocholithiasis Bipolar disorder (manic depression) Scheuermann's kyphosis Surgical History History of ERCP Family History Father Acute myocardial infarction History of CVA (cerebrovascular accident) CVD (cardiovascular disease) Hyperlipidemia Substance abuse Mental health disorder Mother Substance abuse Mental health disorder Brother No problems noted. Brother Mental health disorder Sister Substance abuse Social History Housing: Apartment Alcohol intake: current Alcohol intake frequency: does not drink Patient Tobacco Use Status: Former Tobacco user Cigarette Packs Per Day: 1.5 Cigarettes Per Day: 30 Years Smoked: 15 e-Cigarette/Vaping Use: Never Used Second Hand Smoke Exposure: No service: No Current occupational status: disabled Current occupational exposures/hazards: No Cognitive needs: No Hearing needs: No Vision needs: Yes Female Reproductive History Menstrual Age of Menarche: 9 Physical Exam Vital Signs: Last Vital Signs Pulse 71 03/11/25 13:46 BP 114/78 03/11/25 13:46 Pulse Ox 97 03/11/25 13:46 Oxygen Delivery Method Room Air 03/11/25 13:46 BMI result Body Mass Index 56.9 Const General: cooperative and no acute distress Orientation/consciousness: patient oriented x3 HEENT Other: Mallampati garde IV Resp Effort & Inspection: normal respiratory effort and able to speak in complete sentences Neuro General: patient oriented x3 Cranial nerves: Yes CN's II-XII intact bilaterally Cognition (Neuro): normal cognition Psych Appearance: grossly normal Mental Status: mental status grossly normal Speech and movement: Normal speech and movement present Affect: normal affect Attitude: cooperative Assessment & Plan Assessment & Plan (1) JUNO (obstructive sleep apnea): Comment: A moderate degree of sleep apnea. AHI was 24 and oxygen arturo was 67%. Code(s): G47.33 - Obstructive sleep apnea (adult) (pediatric) Category: Medical (2) Migraine without aura: Code(s): G43.009 - Migraine without aura, not intractable, without status migrainosus Category: Medical Qualifiers: Intractability: not intractable Status migrainosus presence: without status migrainosus Qualified Code(s): G43.009 - Migraine without aura, not intractable, without status migrainosus (3) Vertigo: Code(s): R42 - Dizziness and giddiness Category: Medical Plan For JUNO: Continue APAP 5-20 cmH2O w/ EPR 2, as pt has had good reduction in residual AHI. Routinely clean and change PAP supplies. CPAP supply order written today Information previously shared w/ pt on resources to optimize sleep hygiene, quality. We will follow-up on previous request for ENT consult to assess for enlarged tonsils. For vertigo- Improved, if worsens will revisit referral to PT for vestibular tx For overall migraine treatment: Discussed that as patient has a strong family history of migraine, and she currently is not having any typical migraine symptoms, I do not have suspicion for a secondary underlying etiology for her migraine in headache attacks. Revie wed that MRI and CT do not show migraine, but rather identify secondary causes of headache disorders. If symptoms worsen or she develops atypical headache symptoms, we will reconsider. For acute migraine w/o aura- Continue rizatriptan 10 mg at onset of migraine attack, may repeat in 2 hours, max of 3 tabs per day or 6 tabs per week. Complementary migraine interventions previously shared w/ pt. Previous acute migraine treatment: fioricet- effect varied. Sumatriptan-not consistently effective For migraine prevention: Information previously shared on nonpharmacological migraine treatment stra tegies- such as GreenLight therapy, FL-41 blue light blocking glasses. Start riboflavin 400 mg daily in the morning Start Co Q10 400 mg daily in the morning taking with a higher fat food Increase magnesium glycinate up to 400 mg daily at bedtime Continue Emgality 120mg (120mg/ml autoinjector) subcutaneous injection every month, as patient has had greater than 30% reduction in monthly severe migraine days per month. * Previous preventive migraine treatments: Amitriptyline- ineffective though used for alternate dx. Topiramate- not tolerated- taste changes. Migraine tx contraindications: Aimovig d/t constipation. Beta-blockers d/t risk for worsening mood. Pt to follow-up in 6 months or sooner prn. Medications: New coenzyme Q10 Daily in a.m.. Take with higher fat food 400 mg PO DAILY 90 caps 3RF 90 days rizatriptan max 3 tabs per day or 6 tabs per week 5 - 10 mg (0.5 - 1 x 10 mg) PO Q2H PRN 12 tabs 3RF migraine headache 21 days riboflavin (vitamin B2) 400 mg PO DAILY 90 tabs 3RF 90 days Changed From magnesium glycinate 100 mg PO DAILY To magnesium glycinate 400 mg (4 x 100 mg) PO BEDTIME 120 tabs 11RF 30 days Discontinued rizatriptan (Maxalt) Discontinued Reason: Doctor's Order take 1 tab at onset of headache; if no relief may repeat 1 tab after at least 2 hrs; max = 3 tabs/24 hr PO 10 tabs 1RF Coding Level of Care Code Est Pt Level 4 (72856) Diagnoses JUNO (obstructive sleep apnea) G47.33 Migraine without aura and without status migrainosus, not intractable G43.009 Intractability: not intractable Status migrainosus presence: without status migrainosus Vertigo R42
== END 2025-03-11 14:35 | disposition home or self-care (01) ==
LOC: HO.HSMS 13:38
PROVIDERS: PCP Internal Medicine; Visit Provider Nurse Practitioner Family
DX: G47.33 Obstructive sleep apnea (adult) (pediatric) (principal); G43.009 Migraine without aura, not intractable, without status migrainosus; R42 Dizziness and giddiness
CPT/HCPCS: 99214

== ENCOUNTER → 2025-03-11 13:37 | Outpatient (BNVA) | payer OTHER, SELFPAY | PROVIDERS: PCP Internal Medicine; Visit Provider Nurse Practitioner Family | DX: G43.009 Migraine without aura, not intractable, without status migrainosus (principal); G47.33 Obstructive sleep apnea (adult) (pediatric); R42 Dizziness and giddiness | CPT/HCPCS: 99212 ==

== ENCOUNTER 2025-03-13 14:40 | Outpatient (AMB) | payer OTHER, SELFPAY ==
--- NOTE | 2025-03-13 14:41 | MHC.OFFVIS ---
Vital Signs 03/13/25 14:42 Height 5 ft 2 in Weight 310 lb 13.628 oz BMI 56.8 BP 96/62 Blood Pressure Location Lt radial Position Sitting Pulse 88 Intake Visit Reasons: IBS/GERD Allergies strawberry Allergy (Unknown, Verified 03/13/25 14:45) Swelling, hives hydrocodone (Vicodin) Adverse Reaction (Unknown, Verified 03/13/25 14:45) vomiting HPI HPI IBS/GERD: Details: Assessment & Plan (1) GERD (gastroesophageal reflux disease): Code(s): K21.9 - Gastro-esophageal reflux disease without esophagitis Category: Medical (2) Irritable bowel syndrome with both constipation and diarrhea: Code(s): K58.2 - Mixed irritable bowel syndrome Category: Medical Plan She continues on her famotidine, bentyl, fiber, colace, creon and now she wants to use OTC chewable simethicone. She would like to go back to the 20mg bid famotidine, I question if this change was insurance driven or availability driven. WIll Try, also give omeprazole 20mg qd to try. She has been having more cramping ? if she is out of dicyclomine, re sending. ROV 8 weeks. Medications: New omeprazole 20 mg PO DAILY 30 caps 6RF 30 days K21.9 - Gastro-esophageal reflux disease without esophagitis famotidine (Pepcid) 20 mg PO BID 60 tabs 6RF Refilled dicyclomine 20 mg PO QID PRN 120 tabs 6RF constipation 30 days K58.2 - Mixed irritable bowel syndrome simethicone (Gas Relief (simethicone)) 125 mg PO QID PRN 120 tabs 6RF abdominal distention Discontinued famotidine Discontinued Reason: Doctor's Order 40 mg PO BEDTIME 28 tabs 1RF K21.9 - Gastro-esophageal reflux disease without esophagitis TODAY'S VISIT [facility] Medical History Swelling of lower extremity Swelling of lower leg History of vitamin D deficiency Migraine Sleeping difficulty Seasonal allergic rhinitis Erythema intertrigo Dyslipidemia Chronic low back pain Cervical cancer screening Fatigue Morbid obesity due to excess calories Choledocholithiasis Bipolar disorder (manic depression) Scheuermann's kyphosis Surgical History History of ERCP Family History Father Acute myocardial infarction History of CVA (cerebrovascular accident) CVD (cardiovascular disease) Hyperlipidemia Substance abuse Mental health disorder Mother Substance abuse Mental health disorder Brother No problems noted. Brother Mental health disorder Sister Substance abuse Social History Housing: Apartment Alcohol intake: current Alcohol intake frequency: does not drink Patient Tobacco Use Status: Former Tobacco user Cigarette Packs Per Day: 1.5 Cigarettes Per Day: 30 Years Smoked: 15 e-Cigarette/Vaping Use: Never Used Second Hand Smoke Exposure: No service: No Current occupational status: disabled Current occupational exposures/hazards: No Cognitive needs: No Hearing needs: No Vision needs: Yes Female Reproductive History Menstrual Age of Menarche: 9 Review of Systems Const Denies fatigue, Denies fever(s), Denies night sweats, Denies poor appetite and Denies weight loss Eyes Details: glasses Reports itchy eyes and Reports requires corrective lenses ENT Reports Normal hearing present, Denies dental pain, Denies dysphagia, Denies hearing loss, Denies mouth pain, Reports nasal congestion, Reports nasal discharge, Denies odynophagia, Denies throat swelling, Denies tongue swelling and Reports other (Dentition adequate) Card Reports no additional complaints Resp Reports no additional complaints GI Details: Denies abdominal pain, Denies melena, Reports bloating, Denies hematochezia, Reports constipation, Reports GI cramping, Denies dysphagia, Denies excessive flatus, Denies early satiety, Reports heartburn, Denies diarrhea, Denies nausea, Denies odynophagia, Denies vomiting and Denies hematemesis Musc Reports abnormal gait, Reports back pain, Reports myalgias, Reports arthralgias and Reports stiffness Skin/Breast Denies pruritus, Denies lesions, Denies rash and Denies jaundice Neuro Reports Normal hearing present, Denies Abnormal speech present and Reports abnormal gait Psych Reports anxiety and Reports panic attacks Endo Denies fatigue Aller/Immun Reports itchy eyes, Reports seasonal rhinorrhea, Denies throat swelling and Denies tongue swelling Physical Exam Vital Signs: Last Vital Signs Pulse 88 03/13/25 14:42 BP 96/62 03/13/25 14:42 BMI result Body Mass Index 56.8 Const General: cooperative, no acute distress, well developed and well groomed Nutritional Appearance: well nourished and obese morbidly obese Orientation/consciousness: oriented to person, oriented to place and oriented to time Limitations: No language barrier HEENT Head: Yes normocephalic and Yes atraumatic Eyes General: appearance normal, both eyes and all related structures Pupils: Equal, round and reactive pupils present Neck Neck: Yes normal visual inspection and Yes no lymphadenopathy Thyroid: Thyroid normal Resp Effort & Inspection: normal respiratory effort and able to speak in complete sentences Auscultation: clear to auscultation bilaterally Cardio Rate: regular rate Rhythm: regular rhythm Heart sounds: Normal, physiologic split S2 sound present Peripheral pulses: radial pulses present and posterior tibial pulses present GI Inspection: No distended, Yes Abdominal panniculus present and Yes obesity Palpation (GI): Soft to palpation, nontender, no guarding, not rigid and No hepatosplenomegaly present Percussion: Yes normal to percussion Auscultation: normal bowel sounds Rectal Exam - Female: deferred Skin General skin exam: no rashes or lesions noted, turgor normal, skin not dry, no jaundice, No spider nevi and no striae Rashes: no rashes Nails: normal Neuro General: oriented to person, oriented to place and oriented to time Cranial nerves: Yes Equal, round and reactive pupils present and Yes Normal hearing present Speech: No Abnormal speech present Extrem General: Yes normal to inspection, No clubbing, No cyanosis and No edema Psych Appearance: grossly normal and well kempt Mental Status: mental status grossly normal Speech and movement: Normal speech and movement present Affect: normal affect Attitude: cooperative Thought process: Normal thought process present and not confabulating Thought content: Normal thought content present Insight: Limited insight present (Psych) Judgement: Limited judgement present (Psych) Assessment & Plan Assessment & Plan (1) GERD (gastroesophageal reflux disease): Code(s): K21.9 - Gastro-esophageal reflux disease without esophagitis Category: Medical (2) AUGUSTINE (nonalcoholic steatohepatitis): Comment: BASELINE Laboratory Tests 06/05/24 16:06 WBC 6.9 Hgb 14.0 Hct 43.2 Plt Count 300 Estimated GFR > 60 Total Bilirubin 0.5 AST 21 ALT 25 Alkaline Phosphatase 53 11/14/19 15:20 Anti-Mitochondrial Ab Negative Anti-Smooth Muscle Ab <20 Given this was an incidental finding on imaging and the normal transaminases serology is not warranted. CURRENT LABS ULTRASOUND OF THE ABDOMEN 10/30/23 FINDINGS: PANCREAS: The pancreas is obscured by bowel gas. ABDOMINAL AORTA: The abdominal aorta is not well seen due to bowel gas. INFERIOR VENA CAVA: The inferior vena cava is not well seen due to bowel gas. LIVER: The liver is normal in size. The liver contour is normal. There is diffuse increased liver parenchymal echogenicity, consistent with hepatic steatosis. No focal hepatic lesion. There is no intrahepatic biliary duct dilatation seen. GALLBLADDER: Surgically absent. COMMON BILE DUCT: Normal in caliber measuring 0.2 cm in diameter. RIGHT KIDNEY: Normal. No hydronephrosis. No renal calculi or focal parenchymal lesions. The kidney measures 10.1 cm in maximum dimension. LEFT KIDNEY: Normal. No hydronephrosis. No renal calculi or focal parenchymal lesions. The kidney measures 9.2 cm in maximum dimension. SPLEEN: Normal. The spleen measures 8.7 cm in maximum dimension. FREE FLUID: None. US/US abdomen complete IMPRESSION: 1. Hepatic steatosis. 2. Prior cholecystectomy. 3. The pancreas, abdominal aorta and inferior vena cava are not well seen due to bowel gas. Code(s): K75.81 - Nonalcoholic steatohepatitis (AUGUSTINE) Category: Medical (3) Irritable bowel syndrome with both constipation and diarrhea: Code(s): K58.2 - Mixed irritable bowel syndrome Category: Medical (4) Morbid obesity due to excess calories: Code(s): E66.01 - Morbid (severe) obesity due to excess calories Category: Medical Plan She continues on her famotidine, bentyl, fiber, colace, creon and now she wants to use OTC chewable simethicone. Last visit she wanted to go back to famotidine 20 mg twice a day but I also gave her a trial of omeprazole. She says she received the famotidine 20 mg twice a day in his using the omeprazole only as needed. Her only complaint is she has had some increasing heartburn at night but she thinks it is because she is taking her medications to close to when she lays down and not allowing them to take effect. She continues to have some irritability of the bowel and cramping in it seems that she is getting the dicyclomine in a pill pack since she describes it as being a ?blue pill. ? however because she does get them in pill pack she is not terribly well acquainted with her medications. She also pustule it is that this could be related to perimenopause because she thinks she is going through this as well. She has been trying to utilize lekj-wef-gqslbjg supplements to manage her various health conditions. She is using a supplement with Corps fill in it that she thinks is ?flushing her colon,? in his causing malodorous stools. She is also utilizing things like milk thistle in a combination supplement that she thinks is for helping her ?lymphatics. ? Apparently she has a edema of her lower extremities that she thinks is related to problems with her lymphatic system. However, she is also morbidly obese and this could well be pressure on the return venous system from the extra weight. She is also thinking that these things will help her liver. I did again educate her that science so far only supports lifestyle modifications such as weight loss, diabetes control and avoidance of alcohol as effective in treating fatty liver. She does not drink alcohol. To date, they have not found any efficacy with eylf-oow-brtycwt supplements but I do not believe we will do any harm. The only supplement of questionable concern would be turmeric as in high doses it has been known to cause liver failure. Return office visit in 6 months Medications: Changed From dicyclomine 20 mg PO QID 30 days PRN 120 tabs 6RF constipation K58.2 - Mixed irritable bowel syndrome To dicyclomine 20 mg PO QID 120 tabs 6RF constipation 30 days K58.2 - Mixed irritable bowel syndrome Refilled simethicone (Gas Relief (simethicone)) 125 mg PO QID PRN 120 tabs 6RF abdominal distention docusate sodium 100 mg PO BID 56 caps 6RF K59.04 - Chronic idiopathic constipation famotidine (Pepcid) 20 mg PO BID 60 tabs 6RF khaoop-bgxufbpz-oarnsvn 24,000-76,000 -120,000 unit (Creon) 1 cap PO QID 112 caps 6RF K58.9 - Irritable bowel syndrome, unspecified Coding Level of Care Code Est Pt Level 3 (51416) Diagnoses GERD (gastroesophageal reflux disease) K21.9 AUGUSTINE (nonalcoholic steatohepatitis) K75.81 Irritable bowel syndrome with both constipation and diarrhea K58.2 Morbid obesity due to excess calories E66.01
--- NOTE | 2025-03-13 14:41 | MHC.OFFVIS ---
Vital Signs 03/13/25 14:42 Height 5 ft 2 in Weight 310 lb 13.628 oz BMI 56.8 BP 96/62 Blood Pressure Location Lt radial Position Sitting Pulse 88 Intake Visit Reasons: IBS/GERD Intake Note: Fariba presents to in office follow up of IBS/GERD. CC: Patient reports that she is doing the same. Substation Operator Required: No Accompanied by: Self / Same As Patient Allergies strawberry Allergy (Unknown, Verified 03/13/25 14:45) Swelling, hives hydrocodone (Vicodin) Adverse Reaction (Unknown, Verified 03/13/25 14:45) vomiting PFSH Medical History Swelling of lower extremity Swelling of lower leg History of vitamin D deficiency Migraine Sleeping difficulty Seasonal allergic rhinitis Erythema intertrigo Dyslipidemia Chronic low back pain Cervical cancer screening Fatigue Morbid obesity due to excess calories Choledocholithiasis Bipolar disorder (manic depression) Scheuermann's kyphosis Surgical History History of ERCP Family History Father Acute myocardial infarction History of CVA (cerebrovascular accident) CVD (cardiovascular disease) Hyperlipidemia Substance abuse Mental health disorder Mother Substance abuse Mental health disorder Brother No problems noted. Brother Mental health disorder Sister Substance abuse Social History Housing: Apartment Alcohol intake: current Alcohol intake frequency: does not drink Patient Tobacco Use Status: Former Tobacco user Cigarette Packs Per Day: 1.5 Cigarettes Per Day: 30 Years Smoked: 15 e-Cigarette/Vaping Use: Never Used Second Hand Smoke Exposure: No service: No Current occupational status: disabled Current occupational exposures/hazards: No Cognitive needs: No Hearing needs: No Vision needs: Yes Female Reproductive History Menstrual Age of Menarche: 9 Coding
[2025-03-13 14:42] VITALS: BP 96/62; PULSE 88; BMI 56.8
== END 2025-03-13 15:37 | disposition home or self-care (01) ==
LOC: HO.HGI 14:40
PROVIDERS: PCP Internal Medicine; Visit Provider Nurse Practitioner
DX: K21.9 Gastro-esophageal reflux disease without esophagitis (principal); K75.81 Nonalcoholic steatohepatitis (NASH); K58.2 Mixed irritable bowel syndrome; E66.01 Morbid (severe) obesity due to excess calories
CPT/HCPCS: 99213

== ENCOUNTER 2025-03-13 14:40 | Outpatient (REF) | payer OTHER, SELFPAY ==
[2025-03-13 16:09] LABS: MANUAL DIFF FLAG NO
[2025-03-13 17:06] LABS: Hematocrit 45.5 % (37.0-47.0); Hemoglobin 14.6 g/dl (12.0-16.0); Imm Gran Abs Auto 0.02 X10*3/uL (0.00-0.03); Imm Gran Pct Auto 0.2 % (0.0-0.4); Lymphocytes Absolute Auto 3.1 X10*3/uL (1.2-4.9); Mean Corpuscular HGB Conc 32.1 g/dl (31.0-35.0); Mean Corpuscular Hemoglobin 29.9 pg (27.0-33.0); Mean Corpuscular Volume 93.2 fL (80.0-98.0); NRBC Abs Auto 0.000 X10*3/uL (0.0-0.012); NRBC Pct Auto 0.0 /100WBC (0.0-0.2); Platelet Count 284 X10*3/uL (160-400); Red Blood Count 4.88 X10*6/uL (4.20-5.50); White Blood Count 9.3 X10*3/uL (4.8-10.8)
[2025-03-13 17:44] LABS: Alanine Aminotransferase 25 U/L (0-31); Anion Gap 11 (12-20); Aspartate Amino Transferase 23 U/L (5-31); Blood Urea Nitrogen 18 mg/dL (9-16); Calcium 9.4 mg/dL (8.4-10.2); Carbon Dioxide 26 mmol/L (22-29); Chloride 105 mmol/L (96-108); Cholesterol 252 mg/dL (<200); Estimated Glomerular Filt Rate > 60; HDL Cholesterol 61 mg/dL (>40); Potassium 4.3 mmol/L (3.3-5.1); Sodium 138 mmol/L (135-145); Triglycerides 113 mg/dL (<150)
[2025-03-13 18:05] LABS: Ferritin 173 ng/mL (10-250)
[2025-03-13 18:13] LABS: Folate 4.1 ng/mL (> or = 4.0)
== END 2025-03-13 14:41 | disposition home or self-care (01) ==
LOC: HO.LAB 14:40
PROVIDERS: Absent Provider Internal Medicine; PCP Internal Medicine; Visit Provider Nurse Practitioner
DX: K58.2 Mixed irritable bowel syndrome (principal); K75.81 Nonalcoholic steatohepatitis (NASH); K21.9 Gastro-esophageal reflux disease without esophagitis; L64.8 Other androgenic alopecia; E66.01 Morbid (severe) obesity due to excess calories; E78.5 Hyperlipidemia, unspecified; Z79.899 Other long term (current) drug therapy; G47.33 Obstructive sleep apnea (adult) (pediatric); J30.2 Other seasonal allergic rhinitis; F31.9 Bipolar disorder, unspecified; Z86.39 Personal history of other endocrine, nutritional and metabolic disease
CPT/HCPCS: 36415; 80048; 80061; 82306; 82728; 82746; 84443; 84450; 84460; 84630; 85025; 99212